=== PATIENT | female | born 1955 | race Caucasian/White ===

== ENCOUNTER 2016-07-12 14:48 | Inpatient (IN) | payer OTHER ==
[~2016-07-12] VITALS: Ht 157.5 cm; Wt 74.9 kg
[~2016-07-12 14:48] MED LIST: AMIT150T PO; BSP5 PO; GABA-112 PO; LSX20 PO; METO50TA16 PO; NITR0.4S UT; OXYC-106 PO; PANT40TA PO; SENN-65 PO; SIMV40TA2 PO
[2016-07-12] MEDS ORDERED: BUSP-8 PO (15:38)
[2016-07-12] MEDS ORDERED: CYM60 PO (15:38)
[2016-07-12] MEDS ORDERED: LPT/20 PO (15:38)
[2016-07-12] MEDS ORDERED: LSX20 PO (15:38)
[2016-07-12] MEDS ORDERED: OXYC-643 PO (15:38)
[2016-07-12] MEDS ORDERED: ZLF/50 PO (15:38)
[2016-07-12] MEDS ORDERED: ALBU18002 INH (15:41)
[2016-07-12] MEDS ORDERED: SYMIN160 INH (15:41)
[2016-07-12] MEDS ORDERED: OXYM1TAB PO (15:41)
[2016-07-12] MEDS ORDERED: TGR100 PO (15:41)
[2016-07-12] MEDS ORDERED: ESOM1CAP34 PO (15:44)
[2016-07-12] MEDS ORDERED: DOCU100C PO (15:45)
--- NOTE | 2016-07-12 16:08 | EMERGENCY ROOM VISIT NOTE ---
History Report prepared by Brittney: Arielle Hung Under the Supervision of: Dr. Jerome Horn M.D. First contact with patient: 15:27 Chief Complaint: ABNORMAL LABS Stated Complaint: ABNROMAL LABS, NEEDS BLOOD TRANSFUSIONS History of Present Illness The patient is a 60 year old female who presents to the Emergency Room with complaints of sudden abnormal lab work that was noticed prior to arrival. The patient saw Ashley DURON-[facility] - Pulmonary Medicine earlier today. She ordered blood work as well as a chest x-ray. Ashley Archuleta called her after she received the patient's blood work today and informed her that she should come into the ED for a blood transfusion because her blood counts were low when compared to previous blood work. The patient is unsure of what her blood counts were. The patient is experiencing lightheadedness with standing and shortness of breath. She has not noticed bleeding occurring from anywhere. The patient states that she had a MRI done recently that revealed that her hiatal hernia has gone up into her diaphragm. However, due to an adverse reaction to anaesthesia in the past, the patient states that doctors are hesitant to operate on her. 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 Her oncologist also expressed concern about scar tissue around her pancreas, which may have been a result of previous bleeding so the patient was worried that she may be bleeding there again even though she was unaware of any bleeding previously. 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 The patient is also experiencing blurry and "3D" vision as well as palpitations and shortness of breath. Additionally, the patient states that she has meningioma. The patient is not on any blood thinners. 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 Please see Additional Medical History Sheet. Past Medical & Surgical Medical Problems: (1) Diverticulosis (2) Nilsa Sampson virus infection (3) Fibromyalgia (4) Heart disease (5) Hemangioma of spleen (6) Hiatal hernia (7) HTN (hypertension) (8) Loss of teeth due to extraction (9) Meningioma Surgical Problems: (1) History of hysterectomy Family History Cancer Heart disease Hypertension Social History Smoking Status: Former Smoker Alcohol Use: none Marital Status: in relationship Housing Status: lives alone Occupation Status: unemployed Current/Historical Medications Scheduled Amitriptyline Hcl (Amitriptyline Hcl), 50 MG PO HS Atorvastatin (Atorvastatin Calcium), 20 MG PO HS Budesonide/Formoterol Fumarate (Symbicort 160/4.5 Inhaler ), 1 PUFFS INH BID Buspirone Hcl (Buspirone Hcl), 10 MG PO BID Carbamazepine (Carbamazepine), 100 MG PO BID Duloxetine HCl (Duloxetine HCl), 60 MG PO QPM Furosemide (Furosemide), 20 MG PO DAILY Metoprolol Tartrate (Lopressor) (Lopressor), 50 MG PO BID Nitroglycerin (Nitrostat), 0.4 MG UT PRN Sertraline HCl (Sertraline HCl), 50 MG PO QPM Scheduled PRN Albuterol Sulfate (Proair Respiclick), 2 PUFFS INH BID PRN for SOB/Wheezing Docusate Sodium (Stool Softener), 100 MG PO DAILY PRN for Constipation Esomeprazole Magnesium (Esomeprazole Magnesium), 40 MG PO DAILY PRN for PRN Oxycodone/Acetaminophen 5MG/325MG (Oxycodone/Acetaminophen 5MG/325MG), 1 TABLET PO Q12 PRN for Pain Oxymorphone Hcl (Oxymorphone Hydrochloride), 20 MG PO Q12 PRN for PRN Allergies Coded Allergies: Niacin (Verified Allergy, Intermediate, lips and tongue swell, 07/12/16) Physical Exam Vital Signs Date Time Temp Pulse Resp B/P Pulse Ox O2 Delivery O2 Flow Rate FiO2 07/12/16 18:20 73 16 182/70 100 Room Air 07/12/16 17:11 74 18 144/86 100 Room Air 07/12/16 17:08 74 18 144/86 100 71 164/91 74 174/81 07/12/16 16:18 75 07/12/16 16:12 75 16 155/79 99 Room Air 07/12/16 16:10 99 Room Air 07/12/16 14:56 36.7 91 17 163/83 100 Room Air Physical Exam GENERAL: Patient awake, alert, oriented x 3. Patient follows commands. Patient does not appear toxic. Patient is dehydrated but well-nourished. SKIN: No erythema, pallor, cyanosis or rash HEENT: Normal head, pupils equal, reactive to light and accommodation. Ears normal. Oral cavity and posterior pharynx appear dry. Neck: Without adenopathy , no neck vein distention. LUNGS: Clear to auscultation. No wheezes, no rales, no rhonchi. HEART: No murmurs. No gallops. No rubs ABDOMEN: No masses, no rebound, no hepatomegaly or splenomegaly. EXTREMITIES: No signs of trauma. No pedal or pretibial edema. No calf or thigh tenderness. NEUROLOGIC: Cranial nerves II-XII within normal limits. No gross motor sensory function deficits. Medical Decision & Procedures ER Provider Diagnostic Interpretation: X ray results are stated below per my interpretation and the radiologist's interpretation. CHEST 2 VIEWS ROUTINE IMPRESSION: Fixed hiatal hernia. Otherwise negative study Electronically signed by: Nicholas Partida M.D. 07/12/2016 4:37 PM Dictated Date/Time: 07/12/2016 4:37 PM Laboratory Results 07/12/16 16:05 Red Blood Count 3.42, Mean Corpuscular Volume 66.1, Mean Corpuscular Hemoglobin 19.6, Mean Corpuscular Hemoglobin Concent 29.6, Mean Platelet Volume 8.7, Neutrophils (%) (Auto) 53.2, Lymphocytes (%) (Auto) 36.2, Monocytes (%) (Auto) 6.7, Eosinophils (%) (Auto) 3.0, Basophils (%) (Auto) 0.7, Neutrophils # (Auto) 2.85, Lymphocytes # (Auto) 1.94, Monocytes # (Auto) 0.36, Eosinophils # (Auto) 0.16, Basophils # (Auto) 0.04 07/12/16 16:05 Test 07/12/16 16:05 07/12/16 17:00 07/12/16 18:43 07/12/16 18:45 White Blood Count 5.36 K/uL (4.8-10.8) Red Blood Count 3.42 M/uL (4.2-5.4) Hemoglobin 6.7 g/dL (12.0-16.0) Hematocrit 22.6 % (37-47) Mean Corpuscular Volume 66.1 fL (80-100) Mean Corpuscular Hemoglobin 19.6 pg (25-34) Mean Corpuscular Hemoglobin Concent 29.6 g/dl (32-36) Platelet Count 374 K/uL (130-400) Mean Platelet Volume 8.7 fL (7.4-10.4) Neutrophils (%) (Auto) 53.2 % Lymphocytes (%) (Auto) 36.2 % Monocytes (%) (Auto) 6.7 % Eosinophils (%) (Auto) 3.0 % Basophils (%) (Auto) 0.7 % Neutrophils # (Auto) 2.85 K/uL (1.4-6.5) Lymphocytes # (Auto) 1.94 K/uL (1.2-3.4) Monocytes # (Auto) 0.36 K/uL (0.11-0.59) Eosinophils # (Auto) 0.16 K/uL (0-0.5) Basophils # (Auto) 0.04 K/uL (0-0.2) RDW Standard Deviation 42.1 fL (36.4-46.3) RDW Coefficient of Variation 17.6 % (11.5-14.5) Immature Granulocyte % (Auto) 0.2 % Immature Granulocyte # (Auto) 0.01 K/uL (0.00-0.02) Poikilocytosis PRESENT Microcytosis PRESENT Prothrombin Time 11.8 SECONDS (9.0-12.0) Prothromb Time International Ratio 1.1 (0.9-1.1) Activated Partial Thromboplast Time 26.8 SECONDS (21.0-31.0) Partial Thromboplastin Ratio 1.0 Anion Gap 10.0 mmol/L (3-11) Est Creatinine Clear Calc Drug Dose 73.3 ml/min Estimated GFR () 98.0 Estimated GFR (Non- 84.5 BUN/Creatinine Ratio 12.1 (10-20) Calcium Level 9.1 mg/dl (8.5-10.1) Magnesium Level 2.3 mg/dl (1.8-2.4) Iron Level 12 mcg/dl (35-150) Total Iron Binding Capacity 434 mcg/dl (250-450) Total Bilirubin 0.4 mg/dl (0.2-1) Aspartate Amino Transf (AST/SGOT) 9 U/L (15-37) Alanine Aminotransferase (ALT/SGPT) 15 U/L (12-78) Alkaline Phosphatase 125 U/L (45-117) Troponin I < 0.015 ng/ml (0-0.045) Total Protein 7.2 gm/dl (6.4-8.2) Albumin 4.0 gm/dl (3.4-5.0) Globulin 3.2 gm/dl (2.5-4.0) Albumin/Globulin Ratio 1.3 (0.9-2) Lipase 149 U/L (73-393) Urine Color YELLOW Urine Appearance CLEAR (CLEAR) Urine pH 5.5 (4.5-7.5) Urine Specific [place] 1.022 (1.000-1.030) Urine Protein NEG (NEG) Urine Glucose (UA) NEG (NEG) Urine Ketones NEG (NEG) Urine Occult Blood NEG (NEG) Urine Nitrite NEG (NEG) Urine Bilirubin NEG (NEG) Urine Urobilinogen NEG (NEG) Urine Leukocyte Esterase NEG (NEG) Test 07/12/16 18:46 07/12/16 18:52 Laboratory results as stated above per my review. ECG Indication: SOB/dyspnea Rate (beats per minute): 76 Rhythm: normal sinus Findings: no acute ischemic change, no ectopy ED Course 1527: Past medical records reviewed. The patient was evaluated in room C11. A complete history and physical examination was performed. 1720: Upon reevaluation, the patient is resting comfortably. I discussed today' s findings with her. She verbalized agreement of the treatment plan. The patient will be evaluated for further management. 1739: Discussed the patient's case with Dr. Hyde - [facility] [place]. The patient will be evaluated for further management. Medical Decision Nurses notes reviewed. Medical history sheet reviewed. Differential diagnosis includes but is not limited to: anemia, metabolic disorder, pancreatitis. The patient feels weak and was told that she was evaluated. Multiple labs, EKG and imaging were obtained. Please see above. The patient's hemoglobin is less than 7. Guaiac stool was negative although it was very minimal stool. EKG does not reveal any acute findings. I ordered transfusion of 2 units of packed red cells. I discussed findings with the patient and with the hospitalist. Patient will require further evaluation in the hospital. Consults Time Called: 1708 Consulting Physician: Dr. Barrett VALENCIA Returned Call: [phone] Discussed the patient's case with Dr. Barrett VALENCIA. The patient will be evaluated for further management. Impression Primary Impression: Severe anemia Additional Impression: Hypokalemia Scribe Attestation The scribe's documentation has been prepared under my direction and personally reviewed by me in its entirety. I confirm that the note above accurately reflects all work, treatment, procedures, and medical decision making performed by me. Departure Information Dispostion Being Evaluated By Hospitalist Referrals Jaswinder Webster M.D. (PCP) Patient Instructions My [facility] Problem Qualifiers
[2016-07-12 16:39] LABS: INR 1.1 (0.9-1.1); PROTHROMBIN TIME (PATIENT) 11.8 SECONDS (9.0-12.0)
--- NOTE | 2016-07-12 16:39 | DIAGNOSTIC IMAGING REPORT ---
CHEST 2 VIEWS ROUTINE CLINICAL HISTORY: sob anemic dyspnea. Chest pain. COMPARISON STUDY: No previous studies for comparison. FINDINGS: The bones soft tissues and hemidiaphragms are normal. The cardiomediastinal silhouette is normal. The lungs are clear. The pulmonary vasculature is normal. There is a fixed hiatal hernia. IMPRESSION: Fixed hiatal hernia. Otherwise negative study Electronically signed by: Nicholas Partida M.D. 07/12/2016 4:37 PM Dictated Date/Time: 07/12/2016 4:37 PM
[2016-07-12 16:46] LABS: ALT/SGPT 15 U/L (12-78); AST/SGOT 9 U/L (15-37); BLOOD UREA NITROGEN 9 mg/dl (7-18); BUN/CREATININE RATIO 12.1 (10-20); CALCIUM 9.1 mg/dl (8.5-10.1); CARBON DIOXIDE 25 mmol/L (21-32); CHLORIDE 107 mmol/L (98-107); CREATININE 0.77 mg/dl (0.60-1.20); GLUCOSE 102 mg/dl (70-99); POTASSIUM 3.2 mmol/L (3.5-5.1); SODIUM 142 mmol/L (136-145)
[2016-07-12 16:51] LABS: ALB/GLOB RATIO 1.3 (0.9-2); ALKALINE PHOSPHATASE 125 U/L (45-117); HEMATOCRIT 22.6 % (37-47); MEAN CELL VOLUME 66.1 fL (80-100); MEAN CORPUSCULAR HEMOGLOBIN 19.6 pg (25-34); MEAN CORPUSCULAR HGB CONC 29.6 g/dl (32-36); MEAN PLATELET VOLUME 8.7 fL (7.4-10.4); PLATELET COUNT 374 K/uL (130-400); RED BLOOD COUNT 3.42 M/uL (4.2-5.4); WHITE BLOOD COUNT 5.36 K/uL (4.8-10.8)
[2016-07-12 16:55] LABS: BASO % 0.7 %; BASO ABS # 0.04 K/uL (0-0.2); COMPLETE YES; IG% 0.2 %; LYMPH % 36.2 %; LYMPH ABS # 1.94 K/uL (1.2-3.4); MICROCYTOSIS PRESENT; MONO % 6.7 %; NEUT % 53.2 %; POIKILOCYTOSIS PRESENT
[2016-07-12 17:26] LABS: URINE APPEARANCE CLEAR (CLEAR); URINE BILIRUBIN NEG (NEG); URINE COLOR YELLOW; URINE NITRITE NEG (NEG); URINE PH 5.5 (4.5-7.5); URINE SPECIFIC GRAVITY 1.022 (1.000-1.030); UROBILINOGEN NEG (NEG); ZZUR CULT IF INDIC CLEAN CATCH NO
[2016-07-12 17:30] LABS: MANUAL MICROSCOPIC REQUIRED? NO; REVIEW REQ? NO
[2016-07-12] MEDS ORDERED: ONDANSETRON INJ 2 MG/ML 2 ML VIAL IV PRN (18:45)
[2016-07-12] MEDS ORDERED: ACETAMINOPHEN 325 MG TAB PO PRN (18:45)
[2016-07-12] MEDS ORDERED: LEVALBUTEROL/IPRATROPIUM NEB INH PRN (18:45)
[2016-07-12] MEDS ORDERED: ZOLPIDEM TARTRATE 5 MG TAB PO PRN (18:45)
[2016-07-12] MEDS ORDERED: LEVALBUTEROL 1.25MG/0.5ML NEB INH PRN (19:00)
[2016-07-12] MEDS ORDERED: IPRATROPIUM BROMIDE NEB SOLN 0.02% 2.5 ML VIAL INH PRN (19:00)
[2016-07-12] MEDS ORDERED: OPTIRAY 320 IV PRN (19:00)
[2016-07-12 19:08] LABS: TOTAL IRON BINDING CAPACITY 434 mcg/dl (250-450)
--- NOTE | 2016-07-12 19:13 | DIAGNOSTIC IMAGING REPORT ---
ABDOMEN AND PELVIS CT WITH IV CONTRAST CT DOSE: 343.71 mGy.cm HISTORY: Pain ANEMIA TECHNIQUE: Multiaxial CT images of the abdomen and pelvis were performed following the use of intravenous contrast. COMPARISON STUDY: 01/13/2014 FINDINGS: Lung bases are clear. There is a fixed hiatal hernia. Liver spleen and pancreas are unremarkable. Gallbladder is negative for distention. Kidneys enhance uniformly. The adrenal glands are unremarkable. Bowel pattern is considered nonobstructive throughout. There is no significant abdominal pelvic or inguinal adenopathy. IMPRESSION: Fixed hiatal hernia. Otherwise negative study Electronically signed by: Nicholas Partida M.D. 07/12/2016 7:11 PM Dictated Date/Time: 07/12/2016 7:09 PM
[2016-07-12 19:30] VITALS: BP 172/76; PULSE 88; TEMP 36.9; Ht 157.5 cm; Wt 74.9 kg
[2016-07-12 20:14] VITALS: BP 189/81; PULSE 78; TEMP 36.8; O2SAT 100
--- NOTE | 2016-07-12 20:18 | History and Physical ---
History & Physical Date & Time of Service: Jul 12, 2016 at 19:58 Chief Complaint: Severe Anemia Primary Care Physician: Jaswinder Webster M.D. History of Present Illness Source: patient The patient is a 60-year-old female who is referred to the emergency department by Ashley Haskins PA-C pulmonary medicine, after having lab work performed which showed hemoglobin of 6.7. Patient's symptoms include orthostatic lightheadedness, palpitations, shortness of breath at rest and dyspnea on exertion. She has not noted blood in urine or stool. 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 She reports issues with her memory and clarity of thinking, this is been a problem for a number of years without a determined cause. 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 (3) Fibromyalgia Status: Chronic (4) Heart disease Status: Chronic (5) Hemangioma of spleen Status: Chronic (6) Hiatal hernia Status: Chronic (7) HTN (hypertension) Status: Chronic (8) Loss of teeth due to extraction Status: Chronic (9) Meningioma Status: Chronic Surgical Problems: (1) History of hysterectomy Status: Chronic Family History Cancer Heart disease Hypertension Social History Smoking Status: Former Smoker Smokeless Tobacco Use: No Alcohol Use: none Drug Use: none Marital Status: in relationship Housing status: lives with family Occupational Status: unemployed Multi-Drug Resistant Organisms History of MDRO: No Allergies Coded Allergies: Niacin (Verified Allergy, Intermediate, lips and tongue swell, 07/12/16) Home Medications Scheduled Amitriptyline Hcl (Amitriptyline Hcl), 50 MG PO HS Atorvastatin (Atorvastatin Calcium), 20 MG PO HS Budesonide/Formoterol Fumarate (Symbicort 160/4.5 Inhaler ), 1 PUFFS INH BID Buspirone Hcl (Buspirone Hcl), 10 MG PO BID Carbamazepine (Carbamazepine), 100 MG PO BID Duloxetine HCl (Duloxetine HCl), 60 MG PO QPM Furosemide (Furosemide), 20 MG PO DAILY Metoprolol Tartrate (Lopressor) (Lopressor), 50 MG PO BID Nitroglycerin (Nitrostat), 0.4 MG UT PRN Sertraline HCl (Sertraline HCl), 50 MG PO QPM Scheduled PRN Albuterol Sulfate (Proair Respiclick), 2 PUFFS INH BID PRN for SOB/Wheezing Docusate Sodium (Stool Softener), 100 MG PO DAILY PRN for Constipation Esomeprazole Magnesium (Esomeprazole Magnesium), 40 MG PO DAILY PRN for PRN Oxycodone/Acetaminophen 5MG/325MG (Oxycodone/Acetaminophen 5MG/325MG), 1 TABLET PO Q12 PRN for Pain Oxymorphone Hcl (Oxymorphone Hydrochloride), 20 MG PO Q12 PRN for PRN Review of Systems The patient denies chest pain, cough, lower extremity swelling, vision change, hearing change, sore throat, fevers, chills, sweats, weight change, fatigue, nausea, vomiting, abdominal pain, pelvic pain, blood in urine or stool, dysuria , urinary frequency or urgency, rash, abnormal bruising or bleeding, imbalance , focal or generalized weakness, numbness or tingling in arms or legs, arthralgias or myalgias, back or neck pain, night sweats, or allergy symptoms. The review of systems is otherwise negative other than for that already noted above, and at least 10 systems have been reviewed. Physical Exam Vital Signs Date Time Temp Pulse Resp B/P Pulse Ox O2 Delivery O2 Flow Rate FiO2 07/12/16 19:26 36.7 73 16 182/70 100 07/12/16 18:20 73 16 182/70 100 Room Air 07/12/16 17:11 74 18 144/86 100 Room Air 07/12/16 17:08 74 18 144/86 100 71 164/91 74 174/81 07/12/16 16:18 75 07/12/16 16:12 75 16 155/79 99 Room Air 07/12/16 16:10 99 Room Air 07/12/16 14:56 36.7 91 17 163/83 100 Room Air The patient is awake, well-developed and adequately nourished, alert and oriented 3, normocephalic and atraumatic, lying in bed and in no acute distress. HEENT--PERRL, EOMI, mucous membranes and oropharynx dry. Neck--supple, no JVD or bruits, thyroid normal, trachea midline, no adenopathy. Heart--normal S1 and S2, no extra beats, no murmurs, rubs or gallops. Lungs--clear bilaterally with good air movement, no respiratory distress, no accessory muscle use. Abdomen--normal bowel sounds and soft, nontender and nondistended, no hernias or masses, no organomegaly. Extremities--no cyanosis, clubbing or edema. There are good distal pulses b/l. Dermatologic--normal skin turgor, appears pale, warm and dry, no abnormal lymph nodes, no rash. Neurologic--cranial nerves II through XII grossly intact, motor and sensory examination normal. Rheumatologic--normal range of motion, nontender, muscles and joints. Psychiatric--normal affect. Diagnostics Laboratory Results Results Past 24 Hours Test 07/12/16 16:00 07/12/16 16:05 07/12/16 17:00 07/12/16 18:43 Range/Units White Blood Count 5.36 4.8-10.8 K/uL Red Blood Count 3.42 4.2-5.4 M/uL Hemoglobin 6.7 12.0-16.0 g/dL Hematocrit 22.6 37-47 % Mean Corpuscular Volume 66.1 80-100 fL Mean Corpuscular Hemoglobin 19.6 25-34 pg Mean Corpuscular Hemoglobin Concent 29.6 32-36 g/dl Platelet Count 374 130-400 K/uL Mean Platelet Volume 8.7 7.4-10.4 fL Neutrophils (%) (Auto) 53.2 % Lymphocytes (%) (Auto) 36.2 % Monocytes (%) (Auto) 6.7 % Eosinophils (%) (Auto) 3.0 % Basophils (%) (Auto) 0.7 % Neutrophils # (Auto) 2.85 1.4-6.5 K/uL Lymphocytes # (Auto) 1.94 1.2-3.4 K/uL Monocytes # (Auto) 0.36 0.11-0.59 K/uL Eosinophils # (Auto) 0.16 0-0.5 K/uL Basophils # (Auto) 0.04 0-0.2 K/uL RDW Standard Deviation 42.1 36.4-46.3 fL RDW Coefficient of Variation 17.6 11.5-14.5 % Immature Granulocyte % (Auto) 0.2 % Immature Granulocyte # (Auto) 0.01 0.00-0.02 K/uL Poikilocytosis PRESENT Microcytosis PRESENT Erythrocyte Sedimentation Rate 18 0-21 mm/hr Absolute Reticulocyte Count 0.06 0.02-0.10 10^6/uL Percent Reticulocyte Count 1.6 0.5-2.0 % Prothrombin Time 11.8 9.0-12.0 SECONDS Prothromb Time International Ratio 1.1 0.9-1.1 Activated Partial Thromboplast Time 26.8 21.0-31.0 SECONDS Partial Thromboplastin Ratio 1.0 Sodium Level 142 136-145 mmol/L Potassium Level 3.2 3.5-5.1 mmol/L Chloride Level 107 98-107 mmol/L Carbon Dioxide Level 25 21-32 mmol/L Anion Gap 10.0 3-11 mmol/L Blood Urea Nitrogen 9 7-18 mg/dl Creatinine 0.77 0.60-1.20 mg/dl Est Creatinine Clear Calc Drug Dose 73.3 ml/min Estimated GFR () 98.0 Estimated GFR (Non- 84.5 BUN/Creatinine Ratio 12.1 10-20 Random Glucose 102 70-99 mg/dl Calcium Level 9.1 8.5-10.1 mg/dl Magnesium Level 2.3 1.8-2.4 mg/dl Iron Level 12 35-150 mcg/dl Total Iron Binding Capacity 434 250-450 mcg/dl Total Bilirubin 0.4 0.2-1 mg/dl Aspartate Amino Transf (AST/SGOT) 9 15-37 U/L Alanine Aminotransferase (ALT/SGPT) 15 12-78 U/L Alkaline Phosphatase 125 45-117 U/L Troponin I < 0.015 0-0.045 ng/ml Total Protein 7.2 6.4-8.2 gm/dl Albumin 4.0 3.4-5.0 gm/dl Globulin 3.2 2.5-4.0 gm/dl Albumin/Globulin Ratio 1.3 0.9-2 Lipase 149 73-393 U/L Urine Color YELLOW Urine Appearance CLEAR CLEAR Urine pH 5.5 4.5-7.5 Urine Specific [place] 1.022 1.000-1.030 Urine Protein NEG NEG Urine Glucose (UA) NEG NEG Urine Ketones NEG NEG Urine Occult Blood NEG NEG Urine Nitrite NEG NEG Urine Bilirubin NEG NEG Urine Urobilinogen NEG NEG Urine Leukocyte Esterase NEG NEG Test 07/12/16 18:45 07/12/16 18:46 Range/Units Diagnostic Radiology Patient Name: AGNIESZKA MODI Unit Number: [id number] Dictated: 07/12/161636 Transcribed: 07/12/161636 MS Printed Date/Time: [~ rep prt dt]/[~ rep prt tm] [~ rep ct labl] - [~ rep ct ivnm] [facility] [place] [address] Dictated: 07/12/161636 Transcribed: 07/12/161636 MS Printed Date/Time: [~ rep prt dt]/[~ rep prt tm] [~ rep ct labl] - [~ rep ct ivnm] CHEST 2 VIEWS ROUTINE CLINICAL HISTORY: sob anemic dyspnea. Chest pain. COMPARISON STUDY: No previous studies for comparison. FINDINGS: The bones soft tissues and hemidiaphragms are normal. The cardiomediastinal silhouette is normal. The lungs are clear. The pulmonary vasculature is normal. There is a fixed hiatal hernia. IMPRESSION: Fixed hiatal hernia. Otherwise negative study Electronically signed by: Nicholas Partida M.D. 07/12/2016 4:37 PM Dictated Date/Time: 07/12/2016 4:37 PM The status of this report is Signed. Draft = Not yet reviewed or approved by Radiologist. Signed = Reviewed and approved by Radiologist. <AttendingPhy></AttendingPhy> <FamilyPhy>Tino Norris PA-C</FamilyPhy> < PrimaryPhy>Jaswinder Webster M.D.</PrimaryPhy> <UnitNumber>[id number]</UnitNumber > <VisitNumber>[id number]</VisitNumber> <PatientName>AGNIESZKA MODI</PatientName> <DateOfBirth>1955</DateOfBirth> <Location>[facility]</Location> <ServiceDate></ServiceDate> <MNE>ESINDI</MNE> <OrderingPhy>Jerome Horn M.D.</ OrderingPhy> <OrderingPhyMNE>f rep ord dr molina</OrderingPhyMNE> <DictatingPhyMNE> f rep dict dr molina</DictatingPhyMNE> <CCListMNE>f rep ct mne</CCListMNE> < AdmittingPhyMNE>f pt admit dr molina</AdmittingPhyMNE> <AttendingPhyMNE>f pt attend dr molina</AttendingPhyMNE> <ConsultingPhyMNE>f pt consult dr molina</ConsultingPhyMNE> <FamilyPhyMNE>f pt fam dr molina</FamilyPhyMNE> <OtherPhyMNE>f pt other dr molina</OtherPhyMNE> < PrimaryPhyMNE>f pt prim care dr molina</PrimaryPhyMNE> <ReferringPhyMNE>f pt referring dr molina</ReferringPhyMNE> Patient Name: AGNIESZKA MODI Unit Number: [id number] Dictated: 07/12/161908 Transcribed: 07/12/161908 MS Printed Date/Time: [~ rep prt dt]/[~ rep prt tm] [~ rep ct labl] - [~ rep ct ivnm] [facility] [place] [address] Dictated: 07/12/161908 Transcribed: 07/12/161908 MS Printed Date/Time: [~ rep prt dt]/[~ rep prt tm] [~ rep ct labl] - [~ rep ct ivnm] [~ rep ct add3]] ABDOMEN AND PELVIS CT WITH IV CONTRAST CT DOSE: 343.71 mGy.cm HISTORY: Pain ANEMIA TECHNIQUE: Multiaxial CT images of the abdomen and pelvis were performed following the use of intravenous contrast. COMPARISON STUDY: 01/13/2014 FINDINGS: Lung bases are clear. There is a fixed hiatal hernia. Liver spleen and pancreas are unremarkable. Gallbladder is negative for distention. Kidneys enhance uniformly. The adrenal glands are unremarkable. Bowel pattern is considered nonobstructive throughout. There is no significant abdominal pelvic or inguinal adenopathy. IMPRESSION: Fixed hiatal hernia. Otherwise negative study Electronically signed by: Nicholas Partida M.D. 07/12/2016 7:11 PM Dictated Date/Time: 07/12/2016 7:09 PM The status of this report is Signed. Draft = Not yet reviewed or approved by Radiologist. Signed = Reviewed and approved by Radiologist. <AttendingPhy></AttendingPhy> <FamilyPhy>Tino Norris PA-C</FamilyPhy> < PrimaryPhy>Jaswinder Webster M.D.</PrimaryPhy> <UnitNumber>[id number]</UnitNumber > <VisitNumber>[id number]</VisitNumber> <PatientName>AGNIESZKA MODI</PatientName> <DateOfBirth>1955</DateOfBirth> <Location>[facility]</Location> <ServiceDate></ServiceDate> <MNE>ESINDI</MNE> <OrderingPhy>Buck Hyde M.D.</ OrderingPhy> <OrderingPhyMNE>f rep ord dr molina</OrderingPhyMNE> <DictatingPhyMNE> f rep dict dr molina</DictatingPhyMNE> <CCListMNE>f rep ct mne</CCListMNE> < AdmittingPhyMNE>f pt admit dr molina</AdmittingPhyMNE> <AttendingPhyMNE>f pt attend dr molina</AttendingPhyMNE> <ConsultingPhyMNE>f pt consult dr molina</ConsultingPhyMNE> <FamilyPhyMNE>f pt fam dr molina</FamilyPhyMNE> <OtherPhyMNE>f pt other dr molina</OtherPhyMNE> < PrimaryPhyMNE>f pt prim care dr molina</PrimaryPhyMNE> <ReferringPhyMNE>f pt referring dr molina</ReferringPhyMNE> EKG EKG shows normal sinus rhythm at 76 bpm, no acute ST-T changes, no change compared to 01/13/2014. Impression Assessment and Plan Symptomatic Hypochromic, microcytic anemia--patient be admitted to telemetry unit. Will Hemoccult test stools. We will add iron, TIBC, low B12, folic acid , sedimentation rate, SOCRATES, hemoglobin electrophoresis, reticulocyte count to current labs. We'll transfuse 2 units packed RBCs tonight, and follow serial laboratories. Will Hemoccult test stools. We'll consult gastroenterology and hematology oncology. She'll be allowed to have full liquid diet tonight and then nothing by mouth except meds after midnight. We'll send a peripheral smear for review. Of note, the patient reports that years ago she was told that she had lymphoma, then when her laboratories were repeated she was told she had an Nilsa-Sampson virus infection. Place on pantoprazole 40 mg IV twice a day. CAD/hypertension--continue metoprolol tartrate 50 mg by mouth twice a day, nitroglycerin sublingual 0.4 mg when necessary chest pain. Hold furosemide 20 mg by mouth daily. Anxiety/depression/fibromyalgia--continue amitriptyline 50 mg by mouth at bedtime, buspirone 10 mg by mouth twice a day, duloxetine 60 mg by mouth every evening, sertraline 50 mg by mouth every evening and carbamazepine 100 mg by mouth twice a day. Asthma--continue Symbicort 160/4.5 one puff twice a day. We'll have Xopenex with Atrovent nebulizer to use every 2 hours when necessary. Hypercholesterolemia--continue atorvastatin 20 mg by mouth at bedtime. Level of Care Telemetry Advanced Directives Existing Advance Directive: No Existing Living Will: No Existing Power of Punch Card Operator: No Resuscitation Status FULL RESUSCITATION VTE Prophylaxis VTE Risk Assessment Done? Y/N: Yes Risk Level: Moderate Given or contraindicated: SCD's Social Service Consult None Apply
[2016-07-12] MEDS: SERTRALINE HCL 50 MG TAB PO SCH (20:27)
[2016-07-12] MEDS: CARBAMAZEPINE 100 MG CHEW TAB PO SCH (20:27)
[2016-07-12] MEDS: DULOXETINE HCL 60 MG CAP PO SCH (20:28)
[2016-07-12] MEDS: METOPROLOL TARTRATE 50 MG TAB PO SCH (20:29)
[2016-07-12 20:30] VITALS: BP 172/83; PULSE 72; TEMP 37; O2SAT 100
[2016-07-12] MEDS ORDERED: NURSING VERBAL MED ORDER ONE (21:00)
[2016-07-12] MEDS ORDERED: MoRPHine SULFATE 2 MG/ML CARP IV PRN (21:15)
[2016-07-12 21:30] VITALS: BP 150/87; PULSE 66; TEMP 36.5; O2SAT 100
[2016-07-12 22:30] VITALS: BP 157/82; PULSE 69; TEMP 36.5; O2SAT 99
[2016-07-12] MEDS: PANTOprazole INJ 40 MG in SYRINGE 0 ML IV SCH (23:15)
[2016-07-12] MEDS: NSS + 20MEQ KCL 1000ML 1,000 ML IV SCH (23:16)
[2016-07-12] MEDS: MoRPHine SULFATE 4 MG/ML 1 ML CARP\\VIAL IV PRN (23:16)
[2016-07-12 23:56] VITALS: BP 175/94; PULSE 63; TEMP 36.8; O2SAT 99
[2016-07-13] VITALS (11 sets, daily range): BP systolic 114–173; BP diastolic 70–93; PULSE 60–97; TEMP 36.3–37; O2SAT 96–99
[2016-07-13 05:21] LABS: BLOOD UREA NITROGEN 7 mg/dl (7-18); BUN/CREATININE RATIO 10.5 (10-20); CALCIUM 8.4 mg/dl (8.5-10.1); CARBON DIOXIDE 27 mmol/L (21-32); CHLORIDE 111 mmol/L (98-107); GLUCOSE 97 mg/dl (70-99); MAGNESIUM 2.2 mg/dl (1.8-2.4); POTASSIUM 4.1 mmol/L (3.5-5.1); SODIUM 143 mmol/L (136-145)
[2016-07-13 05:34] LABS: HEMATOCRIT 29.4 % (37-47); MEAN CELL VOLUME 72.8 fL (80-100); MEAN CORPUSCULAR HGB CONC 31.6 g/dl (32-36); MEAN PLATELET VOLUME 9.3 fL (7.4-10.4); PLATELET COUNT 288 K/uL (130-400); RED BLOOD COUNT 4.04 M/uL (4.2-5.4); WHITE BLOOD COUNT 5.13 K/uL (4.8-10.8)
[2016-07-13 05:41] LABS: ANISOCYTOSIS PRESENT; BASO ABS # 0.05 K/uL (0-0.2); COMPLETE YES; EOS % 4.3 %; IG% 0.2 %; LYMPH % 57.1 %; LYMPH ABS # 2.93 K/uL (1.2-3.4); MONO % 11.7 %; NEUT % 25.7 %
[2016-07-13 08:03] LABS: OVALOCYTES 1+
--- NOTE | 2016-07-13 08:12 | Hospitalist Progress Note ---
Hospitalist Progress Note Date of Service Jul 13, 2016. (Daija Barahona PA-C) Subjective Pt evaluation today including: conversation w/ patient, physical exam, chart review, lab review, review of studies, review of inpatient medication list The patient was seen and examined this morning. Patient reports feeling slightly improved today compared to yesterday. She is status post 2 units packed red blood cells last night. Her hemoglobin has appropriately trended up 2 g. Patient reports a significant history of anesthesia intolerance, and she is refusing to undergo any procedure where she needs anesthesia. She reports not waking up for several days and becoming delirious after her first administration of anesthesia. She has had a colonoscopy and an endoscopy before , and states the effects were not as bad. She denies any lightheadedness, dizziness, chest pain, flutter, palpitation or shortness of breath currently. Additional Comments: Constitutional: No fever, chills, sweats, + fatigue Eyes: No diplopia, no changes in vision ENT: No sore throat, tinnitus, or trouble swallowing, + all teeth extracted years ago Respiratory: No shortness of breath, +difficult to take deep breaths, No dyspnea at rest or on exertion, no cough or sputum Cardiovascular: No chest pain, palpitations, or flutter Abdomen: No pain, No constipation, No diarrhea, No nausea, No vomiting Musculoskeletal: No calf pain, No joint pain, No swelling Genitourinary : No dysuria or urinary frequency, No hematuria Neurologic: No numbness/tingling, history of imbalance and requires careful stepping with ambulation, no sensory or motor deficits Psychiatric: No depression or anxiety symptoms Endocrine: + fatigue, No weight changes Integumentary: No itch, No rash (Daija Barahona PA-C) Objective Vital Signs Date Time Temp Pulse Resp B/P Pulse Ox O2 Delivery O2 Flow Rate FiO2 07/13/16 04:00 Room Air 07/13/16 02:59 36.7 72 16 137/80 96 07/13/16 01:59 36.5 60 18 114/70 98 07/13/16 01:42 36.4 64 17 160/81 99 07/13/16 01:13 36.7 61 16 149/93 97 07/13/16 00:13 37.0 62 16 147/88 99 07/12/16 23:59 Room Air 07/12/16 23:56 36.8 63 17 175/94 99 07/12/16 22:30 36.5 69 16 157/82 99 07/12/16 21:30 36.5 66 16 150/87 100 07/12/16 20:30 37.0 72 16 172/83 100 07/12/16 20:14 36.8 78 16 189/81 100 07/12/16 19:30 36.9 88 16 172/76 Room Air 07/12/16 19:26 36.7 73 16 182/70 100 07/12/16 18:20 73 16 182/70 100 Room Air 07/12/16 17:11 74 18 144/86 100 Room Air 07/12/16 17:08 74 18 144/86 100 71 164/91 74 174/81 07/12/16 16:18 75 07/12/16 16:12 75 16 155/79 99 Room Air 07/12/16 16:10 99 Room Air 07/12/16 14:56 36.7 91 17 163/83 100 Room Air (Daija Barahona, PA-C) Physical Exam Notes: General: awake, alert, no apparent distress, +. Appears older than stated age Head: Normocephalic, atraumatic, edentulous ENT: PERRL, EOMI, no pharyngeal exudate, mucous membranes moist Chest: Clear to auscultation, on room air, no adventitious breath sounds Cardiac: Regular rate and rhythm, no murmur, no JVD, normal peripheral pulses, good capillary refill Abdominal: NABS x 4 quadrants, soft, nontender to palpation, no rebound, guarding or tenderness Extremities: Normal inspection, no peripheral edema or erythema, calfs nontender to palpation Psych: Normal mood and affect Neuro: AAO x 3, strength intact bilaterally and related 5/5, no motor deficits, speech is clear, no peripheral sensory deficits Integumentary: + pallor (Daija Barahona, PA-C) Laboratory Results Last 24 Hours Test 07/12/16 16:00 07/12/16 16:05 07/12/16 17:00 07/12/16 19:57 White Blood Count 5.36 K/uL Red Blood Count 3.42 M/uL Hemoglobin 6.7 g/dL Hematocrit 22.6 % Mean Corpuscular Volume 66.1 fL Mean Corpuscular Hemoglobin 19.6 pg Mean Corpuscular Hemoglobin Concent 29.6 g/dl Platelet Count 374 K/uL Mean Platelet Volume 8.7 fL Neutrophils (%) (Auto) 53.2 % Lymphocytes (%) (Auto) 36.2 % Monocytes (%) (Auto) 6.7 % Eosinophils (%) (Auto) 3.0 % Basophils (%) (Auto) 0.7 % Neutrophils # (Auto) 2.85 K/uL Lymphocytes # (Auto) 1.94 K/uL Monocytes # (Auto) 0.36 K/uL Eosinophils # (Auto) 0.16 K/uL Basophils # (Auto) 0.04 K/uL RDW Standard Deviation 42.1 fL RDW Coefficient of Variation 17.6 % Immature Granulocyte % (Auto) 0.2 % Immature Granulocyte # (Auto) 0.01 K/uL Poikilocytosis PRESENT Microcytosis PRESENT Erythrocyte Sedimentation Rate 18 mm/hr Absolute Reticulocyte Count 0.06 10^6/uL Percent Reticulocyte Count 1.6 % Prothrombin Time 11.8 SECONDS Prothromb Time International Ratio 1.1 Activated Partial Thromboplast Time 26.8 SECONDS Partial Thromboplastin Ratio 1.0 Sodium Level 142 mmol/L Potassium Level 3.2 mmol/L Chloride Level 107 mmol/L Carbon Dioxide Level 25 mmol/L Anion Gap 10.0 mmol/L Blood Urea Nitrogen 9 mg/dl Creatinine 0.77 mg/dl Est Creatinine Clear Calc Drug Dose 73.3 ml/min Estimated GFR () 98.0 Estimated GFR (Non- 84.5 BUN/Creatinine Ratio 12.1 Random Glucose 102 mg/dl Calcium Level 9.1 mg/dl Magnesium Level 2.3 mg/dl Iron Level 12 mcg/dl Total Iron Binding Capacity 434 mcg/dl Total Bilirubin 0.4 mg/dl Aspartate Amino Transf (AST/SGOT) 9 U/L Alanine Aminotransferase (ALT/SGPT) 15 U/L Alkaline Phosphatase 125 U/L Troponin I < 0.015 ng/ml Total Protein 7.2 gm/dl Albumin 4.0 gm/dl Globulin 3.2 gm/dl Albumin/Globulin Ratio 1.3 Lipase 149 U/L Urine Color YELLOW Urine Appearance CLEAR Urine pH 5.5 Urine Specific [place] 1.022 Urine Protein NEG Urine Glucose (UA) NEG Urine Ketones NEG Urine Occult Blood NEG Urine Nitrite NEG Urine Bilirubin NEG Urine Urobilinogen NEG Urine Leukocyte Esterase NEG Vitamin B12 Level 572 pg/mL Folate > 24.00 ng/mL Test 07/12/16 22:45 07/13/16 04:30 Stool Occult Blood NEGATIVE White Blood Count 5.13 K/uL Red Blood Count 4.04 M/uL Hemoglobin 9.3 g/dL Hematocrit 29.4 % Mean Corpuscular Volume 72.8 fL Mean Corpuscular Hemoglobin 23.0 pg Mean Corpuscular Hemoglobin Concent 31.6 g/dl Platelet Count 288 K/uL Mean Platelet Volume 9.3 fL Neutrophils (%) (Auto) 25.7 % Lymphocytes (%) (Auto) 57.1 % Monocytes (%) (Auto) 11.7 % Eosinophils (%) (Auto) 4.3 % Basophils (%) (Auto) 1.0 % Neutrophils # (Auto) 1.32 K/uL Lymphocytes # (Auto) 2.93 K/uL Monocytes # (Auto) 0.60 K/uL Eosinophils # (Auto) 0.22 K/uL Basophils # (Auto) 0.05 K/uL RDW Standard Deviation 57.2 fL RDW Coefficient of Variation 21.6 % Immature Granulocyte % (Auto) 0.2 % Immature Granulocyte # (Auto) 0.01 K/uL Anisocytosis PRESENT Ovalocytes 1+ Sodium Level 143 mmol/L Potassium Level 4.1 mmol/L Chloride Level 111 mmol/L Carbon Dioxide Level 27 mmol/L Anion Gap 5.0 mmol/L Blood Urea Nitrogen 7 mg/dl Creatinine 0.70 mg/dl Est Creatinine Clear Calc Drug Dose 80.0 ml/min Estimated GFR () 109.9 Estimated GFR (Non- 94.8 BUN/Creatinine Ratio 10.5 Random Glucose 97 mg/dl Calcium Level 8.4 mg/dl Magnesium Level 2.2 mg/dl Total Creatine Kinase 75 U/L Creatine Kinase MB < 0.5 ng/ml Creatine Kinase MB Ratio Troponin I < 0.015 ng/ml (Daija Barahona, RACHEAL) Assessment and Plan This is a 60 yo F with PMHx of CAD, HTN, asthma, hyperlipidemia presenting with symptomatic anemia and hgb=6.7. Symptomatic Hypochromic, microcytic anemia - Pt was transfused 2 U PRBCs overnight, hgb improved to 9 - Hemoccult test stools have been negative - Heme/onc consulted - appreciate recs- transferrin in process - Patient has been administered IV ferritin while here, she is likely to require this as an outpatient in the future. Will start iron supplementation once daily for now and if she tolerates can be increased to twice daily. - Cont pantoprazole 40 mg IV twice a day. CAD Hypertension - continue metoprolol tartrate 50 mg BID, nitroglycerin sublingual 0.4 mg prn chest pain. - Hold [employer] lasix 20 mg daily for now - no peripheral edema or decreased breath sounds. The patient takes this, an as-needed basis as an outpatient for lower extremity edema History of meningioma - Follows with her she neurology for this Anxiety/ depression/fibromyalgia -continue amitriptyline 50 mg QHS, buspirone 10 mg BID, duloxetine 60 mg QHS, sertraline 50 mg QPM and carbamazepine 100 mg BID. Asthma - Continue Symbicort 160/4.5 one puff BID. - Cont Xopenex with Atrovent nebulizer to use every 2 hours when necessary. - Patient had formal PFTs done about 1 year ago and she is due for repeat testing within the next 1-2 months Hypercholesterolemia -continue atorvastatin 20 mg QHS DVT ppx: teds, scds, CODE STATUS: FULL CODE Disposition: From home, likely discharge within 1-2 days (Daija Barahona, RACHEAL) Attending Attestation: Pt seen/examined, chart reviewed, care plan d/w DOMI Barahona. I agree w/ the gunter components of her documentation. No events overnight. Tele normal. Denies any recent GI blood loss/melena/etc. Denies recent weight loss, wheat product intolerance, etc. Requests home pain meds be administered. VSS no fever gen - nad neck - JVD, very mild heart - RRR lungs - scant b/l basilar rales abd - soft, NT ext - 1+ edema b/l A/P: 1. severe, symptomatic iron deficiency anemia - etiology unclear. outpatient EGD/colonoscopy planned. s/p IV Fe today oral Fe at discharge celiac panel pending 2. ?acute diastolic CHF 2nd to PRBCs & IVF - stop IVF lasix 20mg IV x 1 3. h/o CAD?? outpatient stress test is planned according to patient 4. chronic pain syndrome - resume outpatient meds Kennedy Alonso MD (Kennedy Alonso MD)
[2016-07-13] MEDS: NSS + 20MEQ KCL 1000ML 1,000 ML IV SCH (08:39)
[2016-07-13] MEDS: PANTOprazole INJ 40 MG in SYRINGE 0 ML IV SCH ×2 (08:41→21:07)
[2016-07-13] MEDS: CARBAMAZEPINE 100 MG CHEW TAB PO SCH ×2 (08:42→21:09)
[2016-07-13] MEDS: METOPROLOL TARTRATE 50 MG TAB PO SCH ×2 (08:43→21:07)
[2016-07-13] MEDS: MoRPHine SULFATE 4 MG/ML 1 ML CARP\\VIAL IV PRN (09:04)
[2016-07-13 10:12] LABS: HYPOCHROMIA PRESENT
--- NOTE | 2016-07-13 11:09 | Oncology Consultation ---
Oncology/Heme Consultation Date of Consultation: Jul 13, 2016. Attending Physician: Kennedy Alonso MD Reason for Consultation: Iron deficiency anemia History of Present Illness Ms. Douglass was admitted with generalized fatigue and was found to have a significant microcytic anemia. Her baseline CBC reflects a normal MCV in the past. She denies any overt bleeding. She states she had a colonoscopy 2 years ago along with what sounds like an upper endoscopy with a good report. She denies weight loss. She denies any abdominal pain. She denies shortness of breath. 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 (3) Fibromyalgia Status: Chronic (4) Heart disease Status: Chronic (5) Hemangioma of spleen Status: Chronic (6) Hiatal hernia Status: Chronic (7) HTN (hypertension) Status: Chronic (8) Hypokalemia Status: Acute (9) Loss of teeth due to extraction Status: Chronic (10) Meningioma Status: Chronic (11) Severe anemia Status: Acute Surgical Problems: (1) History of hysterectomy Status: Chronic Family History Cancer Heart disease Hypertension Social History Smoking Status: Former Smoker Smokeless Tobacco Use: No Alcohol Use: none Drug Use: none Marital Status: in relationship Housing Status: lives alone Occupation Status: unemployed Allergies Coded Allergies: Niacin (Verified Allergy, Intermediate, lips and tongue swell, 07/12/16) Home Medications Scheduled Amitriptyline Hcl (Amitriptyline Hcl), 50 MG PO HS Atorvastatin (Atorvastatin Calcium), 20 MG PO HS Budesonide/Formoterol Fumarate (Symbicort 160/4.5 Inhaler ), 1 PUFFS INH BID Buspirone Hcl (Buspirone Hcl), 10 MG PO BID Carbamazepine (Carbamazepine), 100 MG PO BID Duloxetine HCl (Duloxetine HCl), 60 MG PO QPM Furosemide (Furosemide), 20 MG PO DAILY Metoprolol Tartrate (Lopressor) (Lopressor), 50 MG PO BID Nitroglycerin (Nitrostat), 0.4 MG UT PRN Sertraline HCl (Sertraline HCl), 50 MG PO QPM Scheduled PRN Albuterol Sulfate (Proair Respiclick), 2 PUFFS INH BID PRN for SOB/Wheezing Docusate Sodium (Stool Softener), 100 MG PO DAILY PRN for Constipation Esomeprazole Magnesium (Esomeprazole Magnesium), 40 MG PO DAILY PRN for PRN Oxycodone/Acetaminophen 5MG/325MG (Oxycodone/Acetaminophen 5MG/325MG), 1 TABLET PO Q12 PRN for Pain Oxymorphone Hcl (Oxymorphone Hydrochloride), 20 MG PO Q12 PRN for PRN Current Inpatient Medications Current Inpatient Medications Medications (Trade) Dose Ordered Sig/Giselle Route Start Time Stop Time Status Last Admin Dose Admin Potassium Chloride/Sodium Chloride (Nss + 20meq KCl 1000ml) 1,000 ml @ 100 mls/hr Q10H IV 07/12/16 20:15 08/11/16 20:14 07/13/16 08:39 100 MLS/HR Acetaminophen (Tylenol Tab) 650 mg Q4H PRN PO 07/12/16 18:45 08/11/16 18:44 07/12/16 20:28 650 MG Zolpidem Tartrate (Ambien Tab) 5 mg HSZ PRN PO 07/12/16 18:45 08/11/16 18:44 Carbamazepine (Tegretol Chew Tab) 100 mg BID PO 07/12/16 21:00 08/11/16 20:59 07/13/16 08:42 100 MG Duloxetine HCl (Cymbalta Cap) 60 mg QPM PO 07/12/16 21:00 08/11/16 20:59 07/12/16 20:28 60 MG Metoprolol Tartrate (Lopressor Tab) 50 mg BID PO 07/12/16 21:00 08/11/16 20:59 07/13/16 08:43 50 MG Sertraline HCl (Zoloft Tab) 50 mg QPM PO 07/12/16 21:00 08/11/16 20:59 Buspirone HCl 10 mg 10 mg BID PO 07/12/16 21:00 08/11/16 20:59 07/13/16 08:43 10 MG Pantoprazole Sodium/Syringe (Protonix Inj/ Syringe) 10 ml @ 5 mls/min DAILY@09,21 IV 07/12/16 21:00 08/11/16 20:59 07/13/16 08:41 5 MLS/MIN Ondansetron HCl (Zofran Inj) 4 mg Q6H PRN IV 07/12/16 18:45 08/11/16 18:44 Ioversol (Optiray 320) 111 ml UD PRN IV 07/12/16 19:00 07/16/16 18:59 Ipratropium Bastian (Atrovent 0.02% 0.5MG/2.5ML Neb) 0.5 mg Q2H PRN INH 07/12/16 19:00 08/11/16 18:59 Levalbuterol (Xopenex 1.25MG/ 0.5ML Neb) 1.25 mg Q2H PRN INH 07/12/16 19:00 08/11/16 18:59 Morphine Sulfate (MoRPHine SULFATE INJ) 2 mg Q2H PRN IV 07/12/16 21:15 07/26/16 21:14 Morphine Sulfate (MoRPHine SULFATE INJ) 4 mg Q2H PRN IV 07/12/16 21:15 07/26/16 21:14 07/13/16 09:04 4 MG Review of Systems Constitutional: Negative for weight loss, night sweats, or fever Eyes: Negative for event change of vision ENT: Negative for epistaxis, nasal discharge, sore throat, or deafness Cardiovascular: Negative for chest pain, palpitations, dizziness, diaphoresis Respiratory: Negative for new shortness of breath,hemoptysis, or purulent cough Gastrointestinal: Negative for diarrhea, hematemesis, melena, nausea, vomiting , or dyspepsia Integumentary (skin): Negative for rash or jaundice discoloration Genitourinary: Negative for urinary frequency, hematuria, or dysuria Neurological: Negative for weakness, seizure activity, headache, or dizziness Lymphatic/Hematologic: Negative for petechiae, bleeding or new adenopathy Musculoskeletal: Negative for new joint or back pain Allergic/Immunologic: Negative for unusual rash or pruritis. Physical Exam Date Time Temp Pulse Resp B/P Pulse Ox O2 Delivery O2 Flow Rate FiO2 07/13/16 07:59 36.9 73 20 153/81 99 Room Air 07/13/16 04:00 Room Air 07/13/16 02:59 36.7 72 16 137/80 96 07/13/16 01:59 36.5 60 18 114/70 98 07/13/16 01:42 36.4 64 17 160/81 99 07/13/16 01:13 36.7 61 16 149/93 97 07/13/16 00:13 37.0 62 16 147/88 99 07/12/16 23:59 Room Air 07/12/16 23:56 36.8 63 17 175/94 99 07/12/16 22:30 36.5 69 16 157/82 99 07/12/16 21:30 36.5 66 16 150/87 100 07/12/16 20:30 37.0 72 16 172/83 100 07/12/16 20:14 36.8 78 16 189/81 100 07/12/16 19:30 36.9 88 16 172/76 Room Air 07/12/16 19:26 36.7 73 16 182/70 100 07/12/16 18:20 73 16 182/70 100 Room Air 07/12/16 17:11 74 18 144/86 100 Room Air 07/12/16 17:08 74 18 144/86 100 71 164/91 74 174/81 07/12/16 16:18 75 07/12/16 16:12 75 16 155/79 99 Room Air 07/12/16 16:10 99 Room Air 07/12/16 14:56 36.7 91 17 163/83 100 Room Air Constitutional: vitals are stable. Eyes: Eyes are SAMSON EOMI without conjuctival erythema or icterus. ENT: External examination was negative for masses. Neck: Negative for masses or palpable thyromegaly Respiratory: Lung sounds were generally clear bilaterally Cardiovascular: Heart was RRR without significant murmur, gallops aoe rubs Gastrointestinal: No palpable hepatic or splenomegaly. The abdomen was soft with normal bowel sounds. Lymphatic system: there was no palpable peripheral lymphadenopathy Musculoskeletal System: The musculoskeletal system seemed concordant with age. Skin: The skin was negative for jaundice. Neurologic exam: The exam was negative for any focal findings. Deep tendon reflexes were equal and symmetrical. Psychiatric exam: Was essentially negative with normal mood and effect. Breast exam: Done with patient permission was negative for palpable masses or corollary supraclavicular or axillary palpable adenopathy. Exam was witnessed by either a relative, red hat open stack administrator, or clinic staff. Extremities: Negative for edema or erythema Laboratory Results Last 24 Hours Test 07/12/16 16:00 07/12/16 16:05 07/12/16 17:00 07/12/16 19:57 White Blood Count 5.36 K/uL Red Blood Count 3.42 M/uL Hemoglobin 6.7 g/dL Hematocrit 22.6 % Mean Corpuscular Volume 66.1 fL Mean Corpuscular Hemoglobin 19.6 pg Mean Corpuscular Hemoglobin Concent 29.6 g/dl Platelet Count 374 K/uL Mean Platelet Volume 8.7 fL Neutrophils (%) (Auto) 53.2 % Lymphocytes (%) (Auto) 36.2 % Monocytes (%) (Auto) 6.7 % Eosinophils (%) (Auto) 3.0 % Basophils (%) (Auto) 0.7 % Neutrophils # (Auto) 2.85 K/uL Lymphocytes # (Auto) 1.94 K/uL Monocytes # (Auto) 0.36 K/uL Eosinophils # (Auto) 0.16 K/uL Basophils # (Auto) 0.04 K/uL RDW Standard Deviation 42.1 fL RDW Coefficient of Variation 17.6 % Immature Granulocyte % (Auto) 0.2 % Immature Granulocyte # (Auto) 0.01 K/uL Hypochromasia PRESENT Poikilocytosis PRESENT Microcytosis PRESENT Erythrocyte Sedimentation Rate 18 mm/hr Absolute Reticulocyte Count 0.06 10^6/uL Percent Reticulocyte Count 1.6 % Prothrombin Time 11.8 SECONDS Prothromb Time International Ratio 1.1 Activated Partial Thromboplast Time 26.8 SECONDS Partial Thromboplastin Ratio 1.0 Sodium Level 142 mmol/L Potassium Level 3.2 mmol/L Chloride Level 107 mmol/L Carbon Dioxide Level 25 mmol/L Anion Gap 10.0 mmol/L Blood Urea Nitrogen 9 mg/dl Creatinine 0.77 mg/dl Est Creatinine Clear Calc Drug Dose 73.3 ml/min Estimated GFR () 98.0 Estimated GFR (Non- 84.5 BUN/Creatinine Ratio 12.1 Random Glucose 102 mg/dl Calcium Level 9.1 mg/dl Magnesium Level 2.3 mg/dl Iron Level 12 mcg/dl Total Iron Binding Capacity 434 mcg/dl Total Bilirubin 0.4 mg/dl Aspartate Amino Transf (AST/SGOT) 9 U/L Alanine Aminotransferase (ALT/SGPT) 15 U/L Alkaline Phosphatase 125 U/L Troponin I < 0.015 ng/ml Total Protein 7.2 gm/dl Albumin 4.0 gm/dl Globulin 3.2 gm/dl Albumin/Globulin Ratio 1.3 Lipase 149 U/L Urine Color YELLOW Urine Appearance CLEAR Urine pH 5.5 Urine Specific [place] 1.022 Urine Protein NEG Urine Glucose (UA) NEG Urine Ketones NEG Urine Occult Blood NEG Urine Nitrite NEG Urine Bilirubin NEG Urine Urobilinogen NEG Urine Leukocyte Esterase NEG Vitamin B12 Level 572 pg/mL Folate > 24.00 ng/mL Test 07/12/16 22:45 07/13/16 04:30 07/13/16 10:41 07/13/16 10:58 Stool Occult Blood NEGATIVE White Blood Count 5.13 K/uL Red Blood Count 4.04 M/uL Hemoglobin 9.3 g/dL Hematocrit 29.4 % Mean Corpuscular Volume 72.8 fL Mean Corpuscular Hemoglobin 23.0 pg Mean Corpuscular Hemoglobin Concent 31.6 g/dl Platelet Count 288 K/uL Mean Platelet Volume 9.3 fL Neutrophils (%) (Auto) 25.7 % Lymphocytes (%) (Auto) 57.1 % Monocytes (%) (Auto) 11.7 % Eosinophils (%) (Auto) 4.3 % Basophils (%) (Auto) 1.0 % Neutrophils # (Auto) 1.32 K/uL Lymphocytes # (Auto) 2.93 K/uL Monocytes # (Auto) 0.60 K/uL Eosinophils # (Auto) 0.22 K/uL Basophils # (Auto) 0.05 K/uL RDW Standard Deviation 57.2 fL RDW Coefficient of Variation 21.6 % Immature Granulocyte % (Auto) 0.2 % Immature Granulocyte # (Auto) 0.01 K/uL Anisocytosis PRESENT Ovalocytes 1+ Sodium Level 143 mmol/L Potassium Level 4.1 mmol/L Chloride Level 111 mmol/L Carbon Dioxide Level 27 mmol/L Anion Gap 5.0 mmol/L Blood Urea Nitrogen 7 mg/dl Creatinine 0.70 mg/dl Est Creatinine Clear Calc Drug Dose 80.0 ml/min Estimated GFR () 109.9 Estimated GFR (Non- 94.8 BUN/Creatinine Ratio 10.5 Random Glucose 97 mg/dl Calcium Level 8.4 mg/dl Magnesium Level 2.2 mg/dl Ferritin 3.8 ng/ml Total Creatine Kinase 75 U/L Creatine Kinase MB < 0.5 ng/ml Creatine Kinase MB Ratio Troponin I < 0.015 ng/ml Assessment & Plan CBC does reflect a microcytosis. She is iron depleted. A serum ferritin should be checked. She was given 2 units of blood last evening. She should be on oral iron 325 mg of ferrous sulfate at least once a day and that perhaps twice a day. We will administer a dose of IV of parenteral iron while she is here. A GI consultation is in order. The patient states that she lives in [place] it is difficult for her to travel to [place] with any sort of frequency. She does attend the [facility] in [place] and I believe it would be warranted to have our [facility] hematology colleagues involved in that she may need parenteral iron down the road. I did review this with the hospitalist this morning.
[2016-07-13] MEDS ORDERED: SODIUM FERRIC GLUCONATE IV SCH ×3 (11:15→15:30)
[2016-07-13] MEDS ORDERED: SODIUM CHLORIDE 0.9% IV SCH ×3 (11:15→15:30)
--- NOTE | 2016-07-13 13:02 | Gastrointestinal Consultation ---
Gastrointestinal Consultation Date of Consultation: Jul 13, 2016 Attending Physician: Kennedy Watson Consulting Physician: Rubens Newton Reason for Consultation: Anemia History of Present Illness Patient is a 60 year old female w PMHx of diverticulosis, EBV infection, fibromyalgia, spleen hemangioma, hiatal hernia, HTN, meningioma, who is currently admitted for symptomatic anemia. She had been feeling fatigued, having SOB for a couple of weeks. She thought it may be related to her hiatal hernia, but called her Pulmonology office since they had initiated referred to GI surgery for possible repair for this issue. She was noted to be anemic upon eval by Pulmonary and also had desats w O2 to 85% per pt's report. Hgb was down in 6s, baseline in 2013 was 12. She was thus referred to ED for further evaluation. She denies any light headedness, dizziness, CP, but + SOB. Does have generalized abd bloating and occasional discomfort but no more than usual. Denies any nausea, vomiting, + reflux symptoms but well controlled since took Nexium. Bowels move regularly, w/o dark or tarry stools, rectal bleeding. Stool occult negative. She denies any hematuria, open bleeding wounds. She had 2U PRBC yesterday, Hgb up fro 6.7 to 9.3. She has no coagulopathy. Iron studies showed low iron of 12, she's been started on Ferrous Gluconate. Reports had hx of colonoscopy and EGD previously at [facility]. 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 Pt reports previous endoscopies showed hx of benign polyps, and hiatal hernia. Denies any family hx of colon ca. 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 (3) Fibromyalgia Status: Chronic (4) Heart disease Status: Chronic (5) Hemangioma of spleen Status: Chronic (6) Hiatal hernia Status: Chronic (7) HTN (hypertension) Status: Chronic (8) Hypokalemia Status: Acute (9) Loss of teeth due to extraction Status: Chronic (10) Meningioma Status: Chronic (11) Severe anemia Status: Acute Surgical Problems: (1) History of hysterectomy Status: Chronic Past Medical History: See HPI Past Surgical History: Hysterectomy Family History Cancer Heart disease Hypertension Social History Smoking Status: Former Smoker Alcohol Use: none Drug Use: none Marital Status: in relationship Housing Status: lives alone Occupation Status: unemployed Allergies Coded Allergies: Niacin (Verified Allergy, Intermediate, lips and tongue swell, 07/12/16) Current Medications Home Meds and Scripts Medications Dose Route/Sig Max Daily Dose Days Date Category Stool Softener (Docusate Sodium) 100 Mg Cap 100 Mg PO DAILY PRN 07/12/16 Reported Esomeprazole Magnesium 40 Mg Cap 40 Mg PO DAILY PRN 07/12/16 Reported Proair Respiclick (Albuterol Sulfate) 108 Mcg/Act Aer 2 Puffs INH BID PRN 07/12/16 Reported Symbicort 160/4.5 Inhaler (Budesonide/Formoterol Fumarate) Aero 1 Puffs INH BID 07/12/16 Reported Oxymorphone Hydrochloride (Oxymorphone Hcl) 20 Mg Tab 20 Mg PO Q12 PRN 07/12/16 Reported Carbamazepine 100 Mg Chew 100 Mg PO BID 07/12/16 Reported Duloxetine HCl 60 Mg Cap 60 Mg PO QPM 07/12/16 Reported Sertraline HCl 50 Mg Tab 50 Mg PO QPM 07/12/16 Reported Atorvastatin Calcium (Atorvastatin) 20 Mg Tab 20 Mg PO HS 07/12/16 Reported Furosemide 20 Mg Tab 20 Mg PO DAILY 07/12/16 Reported Buspirone Hcl 10 Mg Tab 10 Mg PO BID 07/12/16 Reported Oxycodone/Acetaminophen 5MG/325MG (Oxycodone/Acetaminophen) 1 Tab Tab 1 Tablet PO Q12 PRN 07/12/16 Reported Nitrostat (Nitroglycerin) 0.4 Mg Sub 0.4 Mg UT PRN 01/13/14 Reported Amitriptyline Hcl 150 Mg Tab 50 Mg PO HS 01/13/14 Reported Lopressor (Metoprolol Tartrate) 50 Mg Tab 50 Mg PO BID 11/20/10 Reported Review of Systems Constitutional: No chills, No fever Respiratory: + shortness of breath (improved), No cough Cardiac: No chest pain Abdomen: No GI bleeding, No nausea, No pain, No vomiting Skin: No itch, No rash Physical Exam Date Time Temp Pulse Resp B/P Pulse Ox O2 Delivery O2 Flow Rate FiO2 07/13/16 11:31 36.9 73 20 145/79 98 Room Air 07/13/16 07:59 36.9 73 20 153/81 99 Room Air 07/13/16 04:00 Room Air 07/13/16 02:59 36.7 72 16 137/80 96 07/13/16 01:59 36.5 60 18 114/70 98 07/13/16 01:42 36.4 64 17 160/81 99 07/13/16 01:13 36.7 61 16 149/93 97 07/13/16 00:13 37.0 62 16 147/88 99 07/12/16 23:59 Room Air 07/12/16 23:56 36.8 63 17 175/94 99 07/12/16 22:30 36.5 69 16 157/82 99 07/12/16 21:30 36.5 66 16 150/87 100 07/12/16 20:30 37.0 72 16 172/83 100 07/12/16 20:14 36.8 78 16 189/81 100 07/12/16 19:30 36.9 88 16 172/76 Room Air 07/12/16 19:26 36.7 73 16 182/70 100 07/12/16 18:20 73 16 182/70 100 Room Air 07/12/16 17:11 74 18 144/86 100 Room Air 07/12/16 17:08 74 18 144/86 100 71 164/91 74 174/81 07/12/16 16:18 75 07/12/16 16:12 75 16 155/79 99 Room Air 07/12/16 16:10 99 Room Air 07/12/16 14:56 36.7 91 17 163/83 100 Room Air General Appearance: WD/WN, no apparent distress Eyes: normal inspection, PERRL, EOMI Neck: supple, no JVD, trachea midline Respiratory/Chest: normal breath sounds, no respiratory distress, no accessory muscle use Cardiovascular: regular rate, rhythm, no gallop, no murmur Abdomen: normal bowel sounds, non tender, soft Extremities: normal inspection, no pedal edema, no calf tenderness Neurologic/Psych: alert, normal mood/affect, oriented x 3 Skin: normal color, no jaundice, no rash Laboratory Results Last 24 Hours Test 07/12/16 16:00 07/12/16 16:05 07/12/16 17:00 07/12/16 19:57 White Blood Count 5.36 K/uL Red Blood Count 3.42 M/uL Hemoglobin 6.7 g/dL Hematocrit 22.6 % Mean Corpuscular Volume 66.1 fL Mean Corpuscular Hemoglobin 19.6 pg Mean Corpuscular Hemoglobin Concent 29.6 g/dl Platelet Count 374 K/uL Mean Platelet Volume 8.7 fL Neutrophils (%) (Auto) 53.2 % Lymphocytes (%) (Auto) 36.2 % Monocytes (%) (Auto) 6.7 % Eosinophils (%) (Auto) 3.0 % Basophils (%) (Auto) 0.7 % Neutrophils # (Auto) 2.85 K/uL Lymphocytes # (Auto) 1.94 K/uL Monocytes # (Auto) 0.36 K/uL Eosinophils # (Auto) 0.16 K/uL Basophils # (Auto) 0.04 K/uL RDW Standard Deviation 42.1 fL RDW Coefficient of Variation 17.6 % Immature Granulocyte % (Auto) 0.2 % Immature Granulocyte # (Auto) 0.01 K/uL Hypochromasia PRESENT Poikilocytosis PRESENT Microcytosis PRESENT Erythrocyte Sedimentation Rate 18 mm/hr Absolute Reticulocyte Count 0.06 10^6/uL Percent Reticulocyte Count 1.6 % Prothrombin Time 11.8 SECONDS Prothromb Time International Ratio 1.1 Activated Partial Thromboplast Time 26.8 SECONDS Partial Thromboplastin Ratio 1.0 Sodium Level 142 mmol/L Potassium Level 3.2 mmol/L Chloride Level 107 mmol/L Carbon Dioxide Level 25 mmol/L Anion Gap 10.0 mmol/L Blood Urea Nitrogen 9 mg/dl Creatinine 0.77 mg/dl Est Creatinine Clear Calc Drug Dose 73.3 ml/min Estimated GFR () 98.0 Estimated GFR (Non- 84.5 BUN/Creatinine Ratio 12.1 Random Glucose 102 mg/dl Calcium Level 9.1 mg/dl Magnesium Level 2.3 mg/dl Iron Level 12 mcg/dl Total Iron Binding Capacity 434 mcg/dl Total Bilirubin 0.4 mg/dl Aspartate Amino Transf (AST/SGOT) 9 U/L Alanine Aminotransferase (ALT/SGPT) 15 U/L Alkaline Phosphatase 125 U/L Troponin I < 0.015 ng/ml Total Protein 7.2 gm/dl Albumin 4.0 gm/dl Globulin 3.2 gm/dl Albumin/Globulin Ratio 1.3 Lipase 149 U/L Urine Color YELLOW Urine Appearance CLEAR Urine pH 5.5 Urine Specific [place] 1.022 Urine Protein NEG Urine Glucose (UA) NEG Urine Ketones NEG Urine Occult Blood NEG Urine Nitrite NEG Urine Bilirubin NEG Urine Urobilinogen NEG Urine Leukocyte Esterase NEG Vitamin B12 Level 572 pg/mL Folate > 24.00 ng/mL Test 07/12/16 22:45 07/13/16 04:30 07/13/16 10:58 Stool Occult Blood NEGATIVE White Blood Count 5.13 K/uL Red Blood Count 4.04 M/uL Hemoglobin 9.3 g/dL Hematocrit 29.4 % Mean Corpuscular Volume 72.8 fL Mean Corpuscular Hemoglobin 23.0 pg Mean Corpuscular Hemoglobin Concent 31.6 g/dl Platelet Count 288 K/uL Mean Platelet Volume 9.3 fL Neutrophils (%) (Auto) 25.7 % Lymphocytes (%) (Auto) 57.1 % Monocytes (%) (Auto) 11.7 % Eosinophils (%) (Auto) 4.3 % Basophils (%) (Auto) 1.0 % Neutrophils # (Auto) 1.32 K/uL Lymphocytes # (Auto) 2.93 K/uL Monocytes # (Auto) 0.60 K/uL Eosinophils # (Auto) 0.22 K/uL Basophils # (Auto) 0.05 K/uL RDW Standard Deviation 57.2 fL RDW Coefficient of Variation 21.6 % Immature Granulocyte % (Auto) 0.2 % Immature Granulocyte # (Auto) 0.01 K/uL Anisocytosis PRESENT Ovalocytes 1+ Sodium Level 143 mmol/L Potassium Level 4.1 mmol/L Chloride Level 111 mmol/L Carbon Dioxide Level 27 mmol/L Anion Gap 5.0 mmol/L Blood Urea Nitrogen 7 mg/dl Creatinine 0.70 mg/dl Est Creatinine Clear Calc Drug Dose 80.0 ml/min Estimated GFR () 109.9 Estimated GFR (Non- 94.8 BUN/Creatinine Ratio 10.5 Random Glucose 97 mg/dl Calcium Level 8.4 mg/dl Magnesium Level 2.2 mg/dl Ferritin 3.8 ng/ml Total Creatine Kinase 75 U/L 70 U/L Creatine Kinase MB < 0.5 ng/ml < 0.5 ng/ml Creatine Kinase MB Ratio Troponin I < 0.015 ng/ml < 0.015 ng/ml Impression Patient is a 60 year old female w symptomatic iron deficiency anemia. No s/s of acute GI bleeding, FOBT was negative. She does have a fixed hiatal hernia evident on her CXR and CT abd/pelvis ? David's erosion causing chronic anemia. Plan - Monitor H/H and transfuse prn - Heme/Onc consulted - Complete anemia workup and iron supplementation - Will arrange for outpt EGD/Colonoscopy evaluation in 1 week's time. Pt prefers to be discharged as soon as she's stable. I have seen examined and agree with the plan as outlined above by AMILCAR Montero. -No bleeding, concern with hernia that may have chronic blood loss from David erosions. -Given FOBT negative outpt EGD/Colonoscopy
[2016-07-13] MEDS ORDERED: POTASSIUM CHLORIDE 10 MEQ TABCR PO STA (15:52)
[2016-07-13] MEDS ORDERED: FUROSEMIDE INJ 20 MG in SYRINGE 0 ML IV ONE (16:00)
[2016-07-13] MEDS: MAGNESIUM OXIDE 400 MG TAB PO SCH (16:35)
[2016-07-13] MEDS ORDERED: DiphenhydrAMINE HCL 50 MG/ML VIAL ONE (18:13)
[2016-07-13] MEDS ORDERED: NURSING VERBAL MED ORDER ONE (18:15)
[2016-07-13] MEDS ORDERED: ALBUTEROL 0.083% NEBU SOLN 3 ML VIAL INH ONE (18:18)
[2016-07-13] MEDS ORDERED: HYDROCODONE/ACETAMOPHEN 5/325MG TAB PO PRN (19:30)
[2016-07-13] MEDS: OXYCODONE HCL 20 MG TABCR (OXYCONTIN) PO SCH (19:55)
[2016-07-13] MEDS: METHYLPREDNISOLONE IV 40 MG in SYRINGE 0 ML IV SCH (19:56)
--- NOTE | 2016-07-13 20:34 | Progress Note ---
Progress Note Date of Service Jul 13, 2016. Progress Note 2024 After my visit with the patient I had ordered a dose of IV lasix as I thought the patient was mildly volume overloaded after having received 2 units PRBCs and IVF (had peripheral edema and mild rales at the bases). The nursing staff called me that as the IV lasix was being pushed, within a few seconds of such, she complained of her hands tingling and swelling. Her skin apparently became "mottled" per the staff and her HR/BP went up. I came back to reassess her and she complained of b/l hand swelling and wheezing. Denied laryngeal edema or facial swelling. Denied any rash or hives. She reported she had taken lasix since her teenage years. On exam - skin - no hives/rash but mild edema of both hands face - NO angioedema neck - NO angioedema or stridor heart - tachy, s1, s2 lungs - mild end-exp wheezes b/l The sequence of events was confirmed with the staff -- The iron infusion ran out. About 15 minutes after it was done the nurse flushed her IV with saline. The lasix was given IV. A few seconds after the IV lasix was given she complained of her hands swelling. Spoke with pharmacy and we were both in agreement that this was a reaction to the IV iron and less likely the lasix. Ordered albuterol, benadryl, and IV steroids for her symptoms. Checked on her about an hour after the benadryl and albuterol; hand swelling improved, wheezes resolved, no additional or new complaints. Dx - likely drug reaction to the IV iron. IV iron added to allergy list. Keep overnight. Noted - Hb of 10.3 tonight. Time between 3 separate visits -- about 60 minutes. Kennedy Alonso MD
[2016-07-13] MEDS: DULOXETINE HCL 60 MG CAP PO SCH (21:07)
[2016-07-13] MEDS: SERTRALINE HCL 50 MG TAB PO SCH ×2 (21:10→21:11)
[2016-07-14] MEDS: ALBUTEROL 0.083% NEBU SOLN 3 ML VIAL INH SCH ×4 (01:29→14:00)
[2016-07-14] MEDS: METHYLPREDNISOLONE IV 40 MG in SYRINGE 0 ML IV SCH ×2 (03:05→12:02)
[2016-07-14 03:09] VITALS: BP 126/66; PULSE 71; TEMP 36.6; O2SAT 95
[2016-07-14 06:00] LABS: BASO % 0.2 %; BASO ABS # 0.01 K/uL (0-0.2); HEMATOCRIT 33.2 % (37-47); IG% 0.2 %; LYMPH ABS # 0.94 K/uL (1.2-3.4); MEAN CELL VOLUME 72.3 fL (80-100); MEAN CORPUSCULAR HGB CONC 30.4 g/dl (32-36); MEAN PLATELET VOLUME 9.3 fL (7.4-10.4); MONO % 1.1 %; NEUT % 83.5 %; PLATELET COUNT 325 K/uL (130-400); RED BLOOD COUNT 4.59 M/uL (4.2-5.4); WHITE BLOOD COUNT 6.26 K/uL (4.8-10.8)
[2016-07-14 06:31] LABS: ANISOCYTOSIS PRESENT; COMPLETE YES
[2016-07-14 07:02] VITALS: PULSE 70; O2SAT 97
[2016-07-14 07:02] LABS: BUN/CREATININE RATIO 8.8 (10-20); CALCIUM 8.5 mg/dl (8.5-10.1); CREATININE 0.81 mg/dl (0.60-1.20); MAGNESIUM 2.3 mg/dl (1.8-2.4); POTASSIUM 4.2 mmol/L (3.5-5.1)
[2016-07-14 07:43] VITALS: BP 145/75; PULSE 69; TEMP 36.5; O2SAT 98
[2016-07-14] MEDS: OXYCODONE HCL 20 MG TABCR (OXYCONTIN) PO SCH (07:47)
[2016-07-14] MEDS: PANTOprazole INJ 40 MG in SYRINGE 0 ML IV SCH (07:47)
[2016-07-14] MEDS: MAGNESIUM OXIDE 400 MG TAB PO SCH (07:48)
[2016-07-14] MEDS: CARBAMAZEPINE 100 MG CHEW TAB PO SCH (07:48)
[2016-07-14] MEDS: METOPROLOL TARTRATE 50 MG TAB PO SCH (07:48)
--- NOTE | 2016-07-14 08:11 | Hospitalist Progress Note ---
Hospitalist Progress Note Date of Service Jul 14, 2016. Subjective Pt evaluation today including: conversation w/ patient, physical exam, chart review, lab review, review of studies, review of inpatient medication list Objective Vital Signs Date Time Temp Pulse Resp B/P Pulse Ox O2 Delivery O2 Flow Rate FiO2 07/14/16 07:43 36.5 69 18 145/75 98 Room Air 07/14/16 07:02 70 16 97 Room Air 07/14/16 04:35 Room Air 07/14/16 03:09 36.6 71 19 126/66 95 Room Air 07/14/16 00:09 Room Air 07/13/16 23:26 36.7 80 23 137/77 97 Room Air 07/13/16 19:57 36.3 93 20 149/91 99 Room Air 07/13/16 19:31 97 16 99 Room Air 07/13/16 16:00 Room Air 07/13/16 15:56 36.5 74 20 173/78 97 Room Air 07/13/16 12:00 Room Air 07/13/16 11:31 36.9 73 20 145/79 98 Room Air Laboratory Results Last 24 Hours Test 07/13/16 10:58 07/13/16 16:28 07/14/16 05:31 Total Creatine Kinase 70 U/L Creatine Kinase MB < 0.5 ng/ml Creatine Kinase MB Ratio Troponin I < 0.015 ng/ml Hemoglobin 10.3 g/dL 10.1 g/dL Hepatitis C Antibody Screen NEG White Blood Count 6.26 K/uL Red Blood Count 4.59 M/uL Hematocrit 33.2 % Mean Corpuscular Volume 72.3 fL Mean Corpuscular Hemoglobin 22.0 pg Mean Corpuscular Hemoglobin Concent 30.4 g/dl Platelet Count 325 K/uL Mean Platelet Volume 9.3 fL Neutrophils (%) (Auto) 83.5 % Lymphocytes (%) (Auto) 15.0 % Monocytes (%) (Auto) 1.1 % Eosinophils (%) (Auto) 0.0 % Basophils (%) (Auto) 0.2 % Neutrophils # (Auto) 5.23 K/uL Lymphocytes # (Auto) 0.94 K/uL Monocytes # (Auto) 0.07 K/uL Eosinophils # (Auto) 0.00 K/uL Basophils # (Auto) 0.01 K/uL RDW Standard Deviation 55.3 fL RDW Coefficient of Variation 20.9 % Immature Granulocyte % (Auto) 0.2 % Immature Granulocyte # (Auto) 0.01 K/uL Anisocytosis PRESENT Sodium Level 141 mmol/L Potassium Level 4.2 mmol/L Chloride Level 109 mmol/L Carbon Dioxide Level 23 mmol/L Anion Gap 9.0 mmol/L Blood Urea Nitrogen 7 mg/dl Creatinine 0.81 mg/dl Est Creatinine Clear Calc Drug Dose 70.9 ml/min Estimated GFR () 92.1 Estimated GFR (Non- 79.5 BUN/Creatinine Ratio 8.8 Random Glucose 164 mg/dl Calcium Level 8.5 mg/dl Magnesium Level 2.3 mg/dl Assessment and Plan This is a 60 yo F with PMHx of CAD, HTN, asthma, hyperlipidemia presenting with symptomatic anemia and hgb=6.7. Symptomatic Hypochromic, microcytic anemia - Pt was transfused 2 U PRBCs overnight, hgb improved to 9 - Hemoccult test stools have been negative - Heme/onc consulted - appreciate recs- transferrin in process - Patient has been administered IV ferritin while here, she is likely to require this as an outpatient in the future. Will start iron supplementation once daily for now and if she tolerates can be increased to twice daily. - Cont pantoprazole 40 mg IV twice a day. CAD Hypertension - continue metoprolol tartrate 50 mg BID, nitroglycerin sublingual 0.4 mg prn chest pain. - Hold [employer] lasix 20 mg daily for now - no peripheral edema or decreased breath sounds. The patient takes this, an as-needed basis as an outpatient for lower extremity edema History of meningioma - Follows with her she neurology for this Anxiety/ depression/fibromyalgia -continue amitriptyline 50 mg QHS, buspirone 10 mg BID, duloxetine 60 mg QHS, sertraline 50 mg QPM and carbamazepine 100 mg BID. Asthma - Continue Symbicort 160/4.5 one puff BID. - Cont Xopenex with Atrovent nebulizer to use every 2 hours when necessary. - Patient had formal PFTs done about 1 year ago and she is due for repeat testing within the next 1-2 months Hypercholesterolemia -continue atorvastatin 20 mg QHS DVT ppx: teds, scds, CODE STATUS: FULL CODE Disposition: From home, likely discharge within 1-2 days
--- NOTE | 2016-07-14 10:39 | Hematology/Oncology Prog Note ---
Hematology/Onc Progress Note Date of Service Jul 14, 2016. Diagnoses Iron deficiency anemia Medications Medications Administered Medications (Trade) Dose Ordered Sig/Giselle Route Start Time Stop Time Status Last Admin Dose Admin Potassium Chloride/Sodium Chloride (Nss + 20meq KCl 1000ml) 1,000 ml @ 100 mls/hr Q10H IV 07/12/16 20:15 07/13/16 15:53 DC 07/13/16 08:39 100 MLS/HR Acetaminophen (Tylenol Tab) 650 mg Q4H PRN PO 07/12/16 18:45 08/11/16 18:44 07/12/16 20:28 650 MG Carbamazepine (Tegretol Chew Tab) 100 mg BID PO 07/12/16 21:00 08/11/16 20:59 07/14/16 07:48 100 MG Duloxetine HCl (Cymbalta Cap) 60 mg QPM PO 07/12/16 21:00 08/11/16 20:59 07/13/16 21:07 60 MG Metoprolol Tartrate (Lopressor Tab) 50 mg BID PO 07/12/16 21:00 08/11/16 20:59 07/14/16 07:48 50 MG Buspirone HCl 10 mg 10 mg BID PO 07/12/16 21:00 08/11/16 20:59 07/14/16 07:47 10 MG Pantoprazole Sodium/Syringe (Protonix Inj/ Syringe) 10 ml @ 5 mls/min DAILY@09,21 IV 07/12/16 21:00 08/11/16 20:59 07/14/16 07:47 5 MLS/MIN Morphine Sulfate 4 mg 4 mg Q2H PRN IV 07/12/16 21:15 07/13/16 15:53 DC 07/13/16 09:04 4 MG Ferric Sodium Gluconate 100 mg/ Sodium Chloride 108 ml @ 108 mls/hr TODAY@1530 IV 07/13/16 15:30 07/13/16 16:29 DC 07/13/16 15:12 108 MLS/HR Ferric Sodium Gluconate 25 mg/ Sodium Chloride 52 ml @ 52 mls/hr TODAY@1200 IV 07/13/16 12:00 07/13/16 12:59 DC 07/13/16 12:27 52 MLS/HR Furosemide/Syringe (Lasix Inj/ Syringe) 2 ml @ 4 mls/min TODAY@1600 ONCE IV 07/13/16 16:00 07/13/16 16:01 DC 07/13/16 16:35 4 MLS/MIN Potassium Chloride (Klor-Con M10) 20 meq NOW STAT PO 07/13/16 15:52 07/13/16 15:55 DC 07/13/16 16:35 20 MEQ Magnesium Oxide (Mag-Ox Tab) 400 mg DAILY PO 07/13/16 16:00 08/12/16 15:59 07/14/16 07:48 400 MG Diphenhydramine HCl (Benadryl Inj) 50 mg STK-MED ONCE .ROUTE 07/13/16 18:13 07/13/16 18:14 DC 07/13/16 18:13 25 MG Albuterol Sulfate (Ventolin 0.083% 2.5MG/3ML Neb) 2.5 mg NOW ONCE INH 07/13/16 18:18 07/13/16 18:35 DC 07/13/16 18:18 2.5 MG Albuterol Sulfate 2.5 mg 2.5 mg Q6R INH 07/14/16 00:00 08/13/16 00:00 07/14/16 07:02 2.5 MG Methylprednisolone Sodium Succinate/ Syringe (Solu-Medrol IV/ Syringe) 0.64 ml @ 1.5 mls/min Q8H IV 07/13/16 19:00 08/12/16 18:29 07/14/16 03:05 1.5 MLS/MIN Diphenhydramine HCl (Benadryl Cap) 25 mg Q6H PO 07/14/16 00:00 08/13/16 00:00 07/14/16 06:15 25 MG Oxycodone HCl (Oxycontin Tab) 20 mg Q12H PO 07/13/16 20:00 07/27/16 19:59 07/14/16 07:47 20 MG Subjective She received a dose of parenteral iron yesterday and apparently afterwards or right afterwards had a potential reaction to it. Dr. Alonso reviewed the of that with me. She is now stable.. Hemoglobin today is 10.2 Review of Systems: Constitutional: Negative for weight loss, night sweats, or fever Eyes: Negative for event change of vision ENT: Negative for epistaxis, nasal discharge, sore throat, or deafness Cardiovascular: Negative for chest pain, palpitations, dizziness, diaphoresis Respiratory: She states that she still feels a little "wheezy" Gastrointestinal: Negative for diarrhea, hematemesis, melena, nausea, vomiting , or dyspepsia Integumentary (skin): Negative for rash or jaundice discoloration Genitourinary: Negative for urinary frequency, hematuria, or dysuria Neurological: Negative for weakness, seizure activity, headache, or dizziness Lymphatic/Hematologic: Negative for petechiae, bleeding or new adenopathy Musculoskeletal: Negative for new joint or back pain Allergic/Immunologic: Negative for unusual rash or pruritis. Vital Signs Vital Signs Past 12 Hours Date Time Temp Pulse Resp B/P Pulse Ox O2 Delivery O2 Flow Rate FiO2 07/14/16 08:00 Room Air 07/14/16 07:43 36.5 69 18 145/75 98 Room Air 07/14/16 07:02 70 16 97 Room Air 07/14/16 04:35 Room Air 07/14/16 03:09 36.6 71 19 126/66 95 Room Air 07/14/16 00:09 Room Air 07/13/16 23:26 36.7 80 23 137/77 97 Room Air Physical Exam Constitutional: vitals are stable. Eyes: Eyes are SAMSON EOMI without conjuctival erythema or icterus. ENT: External examination was negative for masses. Neck: Negative for masses or palpable thyromegaly Respiratory: Lung sounds were generally clear bilaterally. Did not hear any definite bronchospasm Cardiovascular: Heart was RRR without significant murmur, gallops aoe rubs Gastrointestinal: No palpable hepatic or splenomegaly. The abdomen was soft with normal bowel sounds. Lymphatic system: there was no palpable peripheral lymphadenopathy Musculoskeletal System: The musculoskeletal system seemed concordant with age. Skin: The skin was negative for jaundice. Neurologic exam: The exam was negative for any focal findings. Deep tendon reflexes were equal and symmetrical. Psychiatric exam: Was essentially negative with normal mood and effect. Breast exam: Not done Extremities: Negative for edema Laboratory Last 24 Hours Test 07/13/16 10:58 07/13/16 16:28 07/14/16 05:31 Total Creatine Kinase 70 U/L Creatine Kinase MB < 0.5 ng/ml Creatine Kinase MB Ratio Troponin I < 0.015 ng/ml Hemoglobin 10.3 g/dL 10.1 g/dL Hepatitis C Antibody Screen NEG White Blood Count 6.26 K/uL Red Blood Count 4.59 M/uL Hematocrit 33.2 % Mean Corpuscular Volume 72.3 fL Mean Corpuscular Hemoglobin 22.0 pg Mean Corpuscular Hemoglobin Concent 30.4 g/dl Platelet Count 325 K/uL Mean Platelet Volume 9.3 fL Neutrophils (%) (Auto) 83.5 % Lymphocytes (%) (Auto) 15.0 % Monocytes (%) (Auto) 1.1 % Eosinophils (%) (Auto) 0.0 % Basophils (%) (Auto) 0.2 % Neutrophils # (Auto) 5.23 K/uL Lymphocytes # (Auto) 0.94 K/uL Monocytes # (Auto) 0.07 K/uL Eosinophils # (Auto) 0.00 K/uL Basophils # (Auto) 0.01 K/uL RDW Standard Deviation 55.3 fL RDW Coefficient of Variation 20.9 % Immature Granulocyte % (Auto) 0.2 % Immature Granulocyte # (Auto) 0.01 K/uL Anisocytosis PRESENT Sodium Level 141 mmol/L Potassium Level 4.2 mmol/L Chloride Level 109 mmol/L Carbon Dioxide Level 23 mmol/L Anion Gap 9.0 mmol/L Blood Urea Nitrogen 7 mg/dl Creatinine 0.81 mg/dl Est Creatinine Clear Calc Drug Dose 70.9 ml/min Estimated GFR () 92.1 Estimated GFR (Non- 79.5 BUN/Creatinine Ratio 8.8 Random Glucose 164 mg/dl Calcium Level 8.5 mg/dl Magnesium Level 2.3 mg/dl Assessment & Plan Iron deficiency anemia. Be sure that she is on ferrous sulfate 325 mg at least once a day and preferably twice a day if tolerated. She may need further parenteral iron. I suspect discharge is planned shortly. I understand that a connection will be made to our colleagues at the [facility] for follow- up. We will sign off for now..
[2016-07-14] MEDS ORDERED: FERR1TAB23 PO (10:43)
--- NOTE | 2016-07-14 10:51 | Discharge Instructions ---
Discharge Instructions Date of Service Jul 14, 2016. Admission Reason for Admission: Severe Anemia Discharge Discharge Diagnosis / Problem: Severe anemia Discharge Goals Goal(s): Decrease discomfort, Improve function, Increase independence, Improve disease control Activity Recommendations Activity Limitations: resume your previous activity . Instructions / Follow-Up Instructions / Follow-Up You were admitted to [facility] with severe anemia and diagnosed with severe anemia secondary to low iron. During your stay here you were treated with intravenous iron: you developed an adverse reaction of swelling in the hands and feet, along with mottling of the skin after administration. - You were treated with intravenous steriods and benadryl. There was no swelling of the throat or airway compromise. This is likely due to the additives in intravenous iron, and not iron itself. - You received a blood transfusion which improved your blood counts. - You have been started on oral iron once daily. Please try to increase this to twice daily as tolerated. You will need to stay on the iron for several months. Taking the iron with a glass of orange juice will help you absorb the iron better. The iron can make your stools look dark. - Drink plenty of water to remain well hydrated, as iron supplementation can cause constipation. If you notice constipation or decrease in bowel frequency, discuss this with your PCP. -Wheezing of the lungs - take prednisone for 4 days starting TOMORROW on Sunday07/15/16. Continue your symbicort inhaler twice daily as prescribed by your family doctor. Take your albuterol inhaler 2 puffs every 4-6 hours as needed for cough/congestion/wheezing. Follow up with your Primary Care Provider within 1 week. Follow up with [facility] as scheduled later this month for the upper endoscopy/colonoscopy. Follow up with [facility] hematology (blood specialist) as scheduled. Current Hospital Diet Patient's current hospital diet: Regular Diet Discharge Diet Recommended Diet: Regular Diet Pending Studies Studies pending at discharge: no Medical Emergencies . Who to Call and When: Medical Emergencies: If at any time you feel your situation is an emergency, please call 911 immediately. . Non-Emergent Contact Non-Emergency issues call your: Primary Care Provider Call Non-Emergent contact if: you have a fever, temperature is above 100.5, your pain is not controlled, your pain is worsening, your pain is unusual for you, your pain is concerning you, you have any medication questions . Past History Medical & Surgical History: (1) Severe anemia (2) HTN (hypertension) (3) Fibromyalgia (4) Hiatal hernia . "Provider Documentation" section prepared by Ana Barahona. VTE Core Measure Inpt VTE Proph given/why not?: Amy Nielsen, SCD's [place] Drug Monitoring Program Search Results: patient reviewed within database
[2016-07-14 11:30] VITALS: BP 164/83; PULSE 81; TEMP 36.7; O2SAT 96
--- NOTE | 2016-07-14 12:36 | Discharge Summary ---
Discharge Summary Date of Service Jul 14, 2016. (Daija Barahona PA-C) Discharge Summary Admission Date: Jul 12, 2016 at 18:37 Discharge Date: Jul 14, 2016 Discharge Disposition: Home Principal Diagnosis: Severe anemia Problems/Secondary Diagnoses: (1) Diverticulosis Status: Chronic (2) Nilsa Sampson virus infection Status: Chronic (3) Fibromyalgia Status: Chronic (4) Heart disease Status: Chronic (5) Hemangioma of spleen Status: Chronic (6) Hiatal hernia Status: Chronic (7) History of hysterectomy Status: Chronic (8) HTN (hypertension) Status: Chronic (9) Loss of teeth due to extraction Status: Chronic (10) Meningioma Status: Chronic Procedures: Chest x-ray 2 views 07/12/16 IMPRESSION: Fixed hiatal hernia. Otherwise negative study Abdomen and pelvis CT with contrast 07/12/16 IMPRESSION: Fixed hiatal hernia. Otherwise negative study Consultations: Hematology/oncology Gastroenterology (Daija Barahona PA-C) Problems/Secondary Diagnoses: Severe Iron Deficiency Anemia Suspected drug reaction to IV iron (Ferrlecit) Suspected acute diastolic CHF due to fluids/PRBCs - resolved HTN Chronic pain syndrome Asthma Fibromyalgia Hiatal Hernia Former Tobacco Use h/o meningioma (Kennedy Alonso MD) Medication Reconciliation New Medications: Ferrous Sulfate (Iron) 325 Mg Tab 1 TAB PO DAILY for 30 Days, #30 TAB Prednisone Tab (Prednisone) 10 Mg Tab 10 MG PO DIRECTED, #10 TAB 0 Refills start 07/15/16: take 4 tabs day 1, 3 tabs day 2, 2 tabs day 3, 1 tab day 4. Take with food. Changed Medications: Esomeprazole Magnesium (Esomeprazole Magnesium) 40 Mg Cap 40 MG PO BID, #60 2 Refills (Changed from: DAILY; Removed Reason; 30; Refills: ) Continued Medications: Albuterol Sulfate (Proair Respiclick) 108 Mcg/Act Aer 2 PUFFS INH BID PRN for SOB/Wheezing Amitriptyline Hcl (Amitriptyline Hcl) 150 Mg Tab 50 MG PO HS Atorvastatin (Atorvastatin Calcium) 20 Mg Tab 20 MG PO HS, #30 Budesonide/Formoterol Fumarate (Symbicort 160/4.5 Inhaler ) Aero 1 PUFFS INH BID, INHALER Buspirone Hcl (Buspirone Hcl) 10 Mg Tab 10 MG PO BID, TAB Carbamazepine (Carbamazepine) 100 Mg Chew 100 MG PO BID, #60 Docusate Sodium (Stool Softener) 100 Mg Cap 100 MG PO DAILY PRN for Constipation Duloxetine HCl (Duloxetine HCl) 60 Mg Cap 60 MG PO QPM, #30 Furosemide (Furosemide) 20 Mg Tab 20 MG PO DAILY Metoprolol Tartrate (Lopressor) (Lopressor) 50 Mg Tab 50 MG PO BID, 0 Refills Nitroglycerin (Nitrostat) 0.4 Mg Sub 0.4 MG UT PRN, BTL Oxycodone/Acetaminophen 5MG/325MG (Oxycodone/Acetaminophen 5MG/325MG) 1 Tab Tab 1 TABLET PO Q12 PRN for Pain, TAB Oxymorphone Hcl (Oxymorphone Hydrochloride) 20 Mg Tab 20 MG PO Q12 PRN for PRN, #60 Sertraline HCl (Sertraline HCl) 50 Mg Tab 50 MG PO QPM, #30 Discharge Exam The patient was seen and examined this morning. Patient is status post IV iron infusion last evening; she had a reaction to this last evening where she had swelling of the hands and feet developed as well as mottling of the skin over her left arm right elbow and right knee. She was treated with IV Solu- Medrol and Benadryl which resolved the problem. There was no airway compromise or laryngeal edema. Patient reports she feels well's morning and is anticipating discharge to home. She denies any chest pain, chest tightness, flutter, palpitation, shortness of breath, abdominal pain, nausea, vomiting, lightheadedness or dizziness. ROS: 10 point review of systems was reviewed and is otherwise negative Physical exam: General: awake, alert, no apparent distress, + appears older than stated age Head: Normocephalic, atraumatic ENT: PERRL, EOMI, no pharyngeal exudate, mucous membranes moist Chest: Clear to auscultation, on room air, no adventitious breath sounds Cardiac: Regular rate and rhythm, no murmur, no JVD, normal peripheral pulses, good capillary refill Abdominal: NABS x 4 quadrants, soft, nontender to palpation, no rebound, guarding or tenderness Extremities: Normal inspection, mild 1+ peripheral edema BLE, no erythema, calfs nontender to palpation Psych: Normal mood and affect Neuro: AAO x 3, strength intact bilaterally and related 5/5, no motor deficits, speech is clear, no peripheral sensory deficits (Daija Barahona PA-C) Hospital Course H&P per Buck Hyde M.D. History of Present Illness Source: patient The patient is a 60-year-old female who is referred to the emergency department by Ashley Haskins PA-C pulmonary medicine, after having lab work performed which showed hemoglobin of 6.7. Patient's symptoms include orthostatic lightheadedness, palpitations, shortness of breath at rest and dyspnea on exertion. She has not noted blood in urine or stool. 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 She reports issues with her memory and clarity of thinking, this is been a problem for a number of years without a determined cause. Physical Exam Vital Signs Date Time Temp Pulse Resp B/P Pulse Ox O2 Delivery O2 Flow Rate FiO2 07/12/16 19:26 36.7 73 16 182/70 100 07/12/16 18:20 73 16 182/70 100 Room Air 07/12/16 17:11 74 18 144/86 100 Room Air 07/12/16 17:08 74 18 144/86 100 71 164/91 74 174/81 07/12/16 16:18 75 07/12/16 16:12 75 16 155/79 99 Room Air 07/12/16 16:10 99 Room Air 07/12/16 14:56 36.7 91 17 163/83 100 Room Air The patient is awake, well-developed and adequately nourished, alert and oriented 3, normocephalic and atraumatic, lying in bed and in no acute distress. HEENT--PERRL, EOMI, mucous membranes and oropharynx dry. Neck--supple, no JVD or bruits, thyroid normal, trachea midline, no adenopathy. Heart--normal S1 and S2, no extra beats, no murmurs, rubs or gallops. Lungs--clear bilaterally with good air movement, no respiratory distress, no accessory muscle use. Abdomen--normal bowel sounds and soft, nontender and nondistended, no hernias or masses, no organomegaly. Extremities--no cyanosis, clubbing or edema. There are good distal pulses b/l. Dermatologic--normal skin turgor, appears pale, warm and dry, no abnormal lymph nodes, no rash. Neurologic--cranial nerves II through XII grossly intact, motor and sensory examination normal. Rheumatologic--normal range of motion, nontender, muscles and joints. Psychiatric--normal affect. Hospital course This is a 60 yo F with PMHx of CAD, HTN, asthma, hyperlipidemia presenting with symptomatic anemia and hgb=6.7. The patient was transfused 2 units PRBCs on 03/18 without complication. The patient was seen by hematology/oncology and was recommended to start IV iron infusion while she was admitted. The patient received an iron infusion and developed a reaction with swelling to the hands and feet, mottling of the skin over different areas of the body. She was treated with IV Solu-Medrol and Benadryl which resolved her symptoms. There was no airway compromise or laryngeal edema. It is likely be additives of twice a day ferrous infusion caused her symptoms versus iron itself. The patient was started on oral iron tablet which she tolerated during her inpatient stay. GI was consulted during her inpatient stay and recommended that she have an outpatient colonoscopy/EGD completed within the next week. This has been set up as an outpatient. The patient's symptoms improved and she was stable for discharge to home. Symptomatic Hypochromic, microcytic anemia - Pt was transfused 2 U PRBCs, hgb improved to 9 and remained stable - Hemoccult test stools have been negative - Heme/onc consulted - appreciate recs- transferrin low: -Received IV ferritin while here, did not tolerate and developed adverse reaction of swelling in bilateral feet and hands. No laryngeal edema, airway compromise. Will start oral iron supplementation once daily for now and if she tolerates can be increased to twice daily. - Cont pantoprazole 40 mg IV twice a day. CAD Hypertension - continue metoprolol tartrate 50 mg BID, nitroglycerin sublingual 0.4 mg prn chest pain. - Hold [employer] lasix 20 mg daily for now - no peripheral edema or decreased breath sounds. The patient takes this, an as-needed basis as an outpatient for lower extremity edema History of meningioma - Follows with [facility] for this Anxiety/ depression/fibromyalgia -continue amitriptyline 50 mg QHS, buspirone 10 mg BID, duloxetine 60 mg QHS, sertraline 50 mg QPM and carbamazepine 100 mg BID. Asthma - Continue Symbicort 160/4.5 one puff BID. - Cont Xopenex with Atrovent nebulizer to use every 2 hours when necessary. - Patient had formal PFTs done about 1 year ago and she is due for repeat testing within the next 1-2 months Hypercholesterolemia -continue atorvastatin 20 mg QHS DVT ppx: teds, scds, CODE STATUS: FULL CODE Disposition: From home, discharged to home today Total Time Spent: Greater than 30 minutes This includes examination of the patient, discharge planning, medication reconciliation, and communication with other providers. (Daija Barahona, RACHEAL) Attending Attestation & Discharge Note: Pt seen/examined, chart reviewed, care plan d/w DOMI Barahona on day of discharge. I agree w/ the gunter components of her discharge summary except - patient will take PPI twice daily BY MOUTH (not IV). 60yo female who presented as a direct admission from the [facility] pulmonary office after she was discovered to be severely anemic. At time of admission hemoglobin was 6.7, MCV was <70, and ferritin was 3. She received 2 units of PRBCs. Discharge Hemoglobin was about 10. She was seen in consult by heme/onc and GI. Hematology recommended IV iron while hospitalized; unfortunately it appears she had a reaction to the Ferrlecit. She was treated with IV steroids, benadryl, and nebulizer treatments for this reaction. She will discharge to home on prednisone for this reaction. [facility] plans to perform outpatient EGD & colonoscopy in the next 1-2 weeks following discharge. Of note - stool was heme NEGATIVE during this stay. Celiac panel was pending at time of discharge. Her stay was complicated not only by the reaction to the IV iron but also suspected acute diastolic CHF. She received 1 dose of IV lasix for such. Discharge exam: gen - nad skin - pallor improved heart - RRR, s1, s2 lungs - scant end-exp wheeze b/l abd - soft, NT, ND, BS+, no HSM ext - trace edema The patient has scheduled f/u with [facility], [facility] heme/onc, and also is scheduled for an outpatient stress test in the next 1-2 months due to chronic dyspnea and other cardiopulmonary complaints (records indicate she has had an abnormal stress test in the past). She will need to take oral iron for 3-6 months depending on clinical response. Kennedy Alonso MD (Kennedy Alonso MD) Discharge Instructions Please refer to the electronic Patient Visit Report (Discharge Instructions) for additional information. (Daija Barahona PA-C) Follow-Up Follow up with your Primary Care Provider within 1 week. Follow-up with GI for colonoscopy/EGD within the next week. (Daija Barahona PA-C) [facility] Hematology Office with Dr. Mauri Carrasco on SundayJuly 18 at 8:45 am. (Kennedy Alonso MD) Additional Copies To Michael Lnio D.O.; Tino Norris PA-C; Jasmin Lofton CRNP; Mauri Carrasco M.D.
[2016-07-14 13:06] VITALS: BP 164/83; PULSE 81; TEMP 36.7; O2SAT 96
[2016-07-14 14:00] VITALS: PULSE 80; O2SAT 96
[2016-07-14] MEDS ORDERED: ESOM1CAP34 PO (14:14)
[2016-07-14] MEDS ORDERED: PRED10TA PO (14:14)
[2016-07-15 22:30] LABS: IGA SERUM 133 mg/dL (81-463); TIS TRANS IGA 1 U/mL (<4)
--- NOTE | 2016-07-17 11:58 | EDITING REQUIRED CODING QUERY ---
CODING QUERY To promote full compliance with coding requirements relating to patient care, provider participation is requested in all cases of assembly machine tool setter uncertainty. Please assist us with the question(s) below: Coding Question(s): Dr. Alonso, On the progress note dated 07/13, the following is documented: ?acute diastolic CHF 2nd to PRBCs IVF - This information is not documented on the discharge summary. Please clarify if the acute diastolic CHF was: (x ) present and treated during this admission ( ) ruled out ( ) other, please explain Physician's Response(s): Thank you for your time, GOGO Avila, STRATEGIC PLANNER
[2016-07-17 13:42] LABS: HCT 23.1 % (35.0-45.0); HEMOGLOBIN A2 1.5 % (1.8-3.5); MCH 19.6 pg (27.0-33.0); MCV 64.5 FL (80.0-100.0); RBC 3.58 Mill/uL (3.80-5.10)
[2016-07-18] MEDS ORDERED: NXM/40 PO (09:51)
[2016-08-30] MEDS ORDERED: FERR1TAB13 PO (12:40)
[2016-08-30] MEDS ORDERED: AMT50 PO (12:40)
[2016-08-30] MEDS ORDERED: VNTHFA/IN INH (12:40)
== END 2016-07-14 14:59 | disposition home or self-care (01) | DRG 811 ==
LOC: ENRESERVDT → ENRESERVTM → C.EDB 14:50 → C.2T 18:37
PROVIDERS: ADMIT Hospitalist; ATTEND Internal Medicine
DX: D50.9 Iron deficiency anemia, unspecified (principal); I50.31 Acute diastolic (congestive) heart failure; Q44.7 Other congenital malformations of liver; M79.89 Other specified soft tissue disorders; T45.4X5A Adverse effect of iron and its compounds, initial encounter; Y92.230 Patient room in hospital as the place of occurrence of the external cause; E87.6 Hypokalemia; D13.9 Benign neoplasm of ill-defined sites within the digestive system; I25.10 Atherosclerotic heart disease of native coronary artery without angina pectoris; I10 Essential (primary) hypertension; J45.909 Unspecified asthma, uncomplicated; E78.00 Pure hypercholesterolemia, unspecified; G89.4 Chronic pain syndrome; M79.7 Fibromyalgia; F41.9 Anxiety disorder, unspecified; F32.9 Major depressive disorder, single episode, unspecified; Z86.19 Personal history of other infectious and parasitic diseases; Z87.891 Personal history of nicotine dependence; Z79.51 Long term (current) use of inhaled steroids; Z79.899 Other long term (current) drug therapy; Z79.891 Long term (current) use of opiate analgesic

== ENCOUNTER 2021-10-29 11:14 | Observation (INO) ==
--- NOTE | 2021-10-29 12:17 | Emergency Department Note ---
History of Present Illness General Chief Complaint: Shortness of Breath/Dyspnea Stated Complaint: SEVERE ANEMIA/OFF BALANCE/SOB/CHEST TIGHTNESS Time Seen by Provider: 10/29/21 11:45 History of Present Illness Provider Complaint: shortness of breath Onset (ago): month(s) (1) Severity: moderate Maximum Pain Intensity: 5 Relieved By: + nothing Exacerbated By: + nothing Known history of: COPD Associated symptoms: no chest pain, no fever, no cough, no wheezing, no sputum production, no polyuria, no diaphoresis, no nausea/vomiting, no abdominal pain, no chest congestion or no lightheadedness Home Medications Medication Instructions Recorded Confirmed Type Oxygen Home #2 L 06/02/19 08/23/20 Rx ferrous sulfate 325 mg (65 mg 325 mg PO DAILY 06/02/19 08/10/21 History iron) tablet (FeroSul) hydrocodone 7.5 mg-acetaminophen 15 ml PO Q8H PRN 06/02/19 08/10/21 History 325 mg/15 mL oral solution metoprolol tartrate 50 mg tablet 50 mg PO BID 06/02/19 10/29/21 History naloxegol 25 mg tablet (Movantik) 25 mg PO QAM 06/02/19 08/10/21 History nitroglycerin 0.4 mg sublingual 0.4 mg sublingual Q5M PRN 07/20/20 08/10/21 History tablet Portable Oxygen #1 ea 08/10/21 08/10/21 Rx albuterol sulfate 90 mcg/actuation 1 inh inhalation QID PRN shortness 08/10/21 08/10/21 Rx aerosol inhaler (Proventil HFA) of breath or wheezing #8.5 grams coenzyme Q10 60 mg tablet 60 mg PO DAILY 08/10/21 10/29/21 History docusate sodium 100 mg tablet 100 mg PO DAILY 08/10/21 10/29/21 History furosemide 20 mg tablet 40 mg PO DAILY PRN 08/10/21 08/10/21 History multivitamin 1 tab PO DAILY 08/10/21 08/10/21 History red yeast rice 600 mg capsule 600 mg PO DAILY 08/10/21 08/10/21 History acetaminophen 500 mg tablet 500 mg PO QID PRN Pain 10/29/21 10/29/21 History Allergies Allergy/AdvReac Type Severity Reaction Status Date / Time benzyl alcohol Allergy Severe SEE BELOW Verified 08/10/21 14:12 sucrose Allergy Severe SEE BELOW Verified 08/10/21 14:12 niacin Allergy Intermediate lips and Verified 08/10/21 14:12 tongue swell iron AdvReac Severe SEE BELOW Verified 08/10/21 14:12 Past Med/Surg History Medical History Cerebral meningioma Chronic pain syndrome Depression Diverticulitis Fibromyalgia Hemangioma of spleen Hiatal hernia HTN (hypertension) Hyperlipidemia, mixed Memory loss Multiple pulmonary nodules Multiple thyroid nodules Surgical History History of hysterectomy Loss of teeth due to extraction Family History Father Colon cancer Esophageal cancer Prostate cancer Mother Abdominal aortic aneurysm Hypercholesterolemia Daughter Fibromyalgia Sister Hypertension Daughter Thyroid cancer Systemic lupus Social History Smoking Status: Never smoker Age Started Using Tobacco: 19; Age Quit Using Tobacco: 58; packs per day: 1; Hx Substance Use: Yes Preferred Language: Japanese marital status: Single current occupational status: disabled Feels Safe at Home: Yes Review of Systems A total of 10 systems reviewed and were otherwise negative Physical Exam Vital Signs: Vital Signs - 24 hr 10/29/21 11:20 10/29/21 12:04 10/29/21 12:04 Temperature 36.9 C Temperature Source Temporal Artery Sc an Pulse Rate 76 65 Pulse Rate from Sp O2 Sensor Pulse Rhythm Regular Respiratory Rate 18 18 Respiratory Effort / Characteristics Respiratory Depth Respiratory Patter n Blood Pressure 191/71 H Blood Pressure Letitia n 111 Pulse Oximetry 100 100 2 L Oxygen Delivery Me thod Room Air Nasal Cannula Room Air Oxygen Flow Rate 2 100 Sepsis Recent Feve r Within 48 Hours No Sepsis New/Unexpla ined Change in Men nate Status N/A Sepsis Action Take n by Nursing No Action Required 10/29/21 12:05 10/29/21 11:51 10/29/21 11:51 Temperature Temperature Source Pulse Rate 71 Pulse Rate from Sp O2 Sensor 73 Pulse Rhythm Respiratory Rate 13 Respiratory Effort / Characteristics Non-Labored Sponta neous Respiratory Depth Normal Respiratory Patter n Regular Blood Pressure 216/75 H Blood Pressure Letitia n 122 Pulse Oximetry 100 Oxygen Delivery Me thod Nasal Cannula Oxygen Flow Rate 2 Sepsis Recent Feve r Within 48 Hours Sepsis New/Unexpla ined Change in Men nate Status Sepsis Action Take n by Nursing 10/29/21 12:00 10/29/21 12:00 10/29/21 12:30 Temperature Temperature Source Pulse Rate 67 63 Pulse Rate from Sp O2 Sensor 66 Pulse Rhythm Respiratory Rate 12 18 Respiratory Effort / Characteristics Respiratory Depth Respiratory Patter n Blood Pressure 212/70 H Blood Pressure Letitia n 117 Pulse Oximetry 100 Oxygen Delivery Me thod Nasal Cannula Oxygen Flow Rate 2 Sepsis Recent Feve r Within 48 Hours Sepsis New/Unexpla ined Change in Men nate Status Sepsis Action Take n by Nursing 10/29/21 13:00 10/29/21 13:00 10/29/21 13:30 Temperature Temperature Source Pulse Rate 67 Pulse Rate from Sp O2 Sensor 66 Pulse Rhythm Respiratory Rate 12 Respiratory Effort / Characteristics Respiratory Depth Respiratory Patter n Blood Pressure 171/105 H 189/91 H Blood Pressure Letitia n 127 123 Pulse Oximetry 100 Oxygen Delivery Me thod Nasal Cannula Oxygen Flow Rate 2 Sepsis Recent Feve r Within 48 Hours Sepsis New/Unexpla ined Change in Men nate Status Sepsis Action Take n by Nursing 10/29/21 13:30 10/29/21 14:00 10/29/21 14:00 Temperature Temperature Source Pulse Rate 67 66 Pulse Rate from Sp O2 Sensor 66 Pulse Rhythm Respiratory Rate 16 21 Respiratory Effort / Characteristics Respiratory Depth Respiratory Patter n Blood Pressure 188/101 H Blood Pressure Letitia n 130 Pulse Oximetry 100 100 Oxygen Delivery Me thod Nasal Cannula Nasal Cannula Oxygen Flow Rate 2 2 Sepsis Recent Feve r Within 48 Hours Sepsis New/Unexpla ined Change in Men nate Status Sepsis Action Take n by Nursing Physical Exam: Physical Exam GENERAL: She is oriented to person, place, and time. She appears well-developed and well-nourished. She does not appear distressed. HENT: Exam performed. -Head: Normocephalic and atraumatic. -Right Ear: External ear normal. No mastoid tenderness. -Left Ear: External ear normal. No mastoid tenderness. -Mouth/Throat: The oropharynx is clear and moist. No trismus in the jaw. No dental abscesses or uvula swelling. No oropharyngeal exudate or tonsillar abscesses. EYES: Conjunctivae and EOM are normal. Pupils are equal, round, and reactive to light. Right eye exhibits no discharge. Left eye exhibits no discharge. No scleral icterus. NECK: Normal range of motion. Neck supple. No JVD present. No spinous process tenderness present. No carotid bruit present. No rigidity. No tracheal deviation and normal range of motion present. No Brudzinski's sign and no Kernig's sign noted. CV: Normal rate, regular rhythm, normal heart sounds and intact distal pulses. There is no peripheral edema. Palpable radial pulses bue. PULM/CHEST: Effort normal and breath sounds normal. No respiratory distress. No stridor. She has no wheezes. She has no rales. -Chest Wall: She exhibits no tenderness. ABD: The abdomen is soft. Bowel sounds are normal. She has no distension. No mass is present. There is no tenderness. There is no rebound, no guarding, no Gibbs's sign and no tenderness at McBurney's point. Rovsig negative MUSC/SKEL: Normal range of motion. There is no peripheral edema, tenderness or deformity. LYMPH: No cervical adenopathy. NEURO: She is alert and oriented to person, place, and time. She has normal strength. No cranial nerve deficit or sensory deficit. Coordination and gait normal. GCS eye subscore is 4. GCS verbal subscore is 5. GCS motor subscore is 6. Cerebellar tests wnl. SKIN: Pale PSYCH: She has a normal mood and affect. Behavior is normal. Judgment and thought content normal. Course Course 1145: The patient was evaluated in room B5. A complete history and physical exam was performed Cardiac monitoring: An order was placed for continuous cardiac monitoring. The monitor shows a rate of 70 with sinus rhythm 1247: Vital signs stable. Patient's hemoglobin 5.2. Exam performed with female nursing quoter Fatmata at bedside no gross red blood no melena Hemoccult negative. Will be transfused 2 units packed red blood cells [facility]. Medical Decision Making Laboratory Data Result diagrams: 10/29/21 13:22 10/29/21 12:01 Lab Results 10/29/21 10/29/21 10/29/21 Range/Units 12:01 12:01 12:01 WBC 7.06 (4.8-10.8) K/ul RBC 2.68 L (3.93-5.22) M/uL Hgb 5.1 L* (12.0-16.0) g/dl Hct 18.7 L* (34.1-44.9) % MCV 69.8 L (80.0-100.0) fL MCH 19.0 L (25.0-34.0) pg MCHC 27.3 L (32.0-36.0) g/dL RDW Std Deviation 45.7 (36.4-46.3) fL RDW Coeff of Terrance 18.0 H (11.5-14.5) % Plt Count 466 H (130-400) K/uL MPV 10.0 (9.4-12.3) fL Immature Gran % (Auto) 0.3 % Neut % (Auto) 65.8 % Lymph % (Auto) 24.5 % [place] % (Auto) 6.9 % Eos % (Auto) 1.7 % Baso % (Auto) 0.8 % Reticulocyte % (Auto) (0.5-2.0) % Neut # (Auto) 4.64 (1.4-6.5) K/uL Lymph # (Auto) 1.73 (1.2-3.4) K/uL [place] # (Auto) 0.49 (0.24-0.82) K/uL Eos # (Auto) 0.12 (0-0.50) K/uL Baso # (Auto) 0.06 (0-0.2) K/uL Reticulocyte # (0.02-0.10) 10^6/uL Immature Gran # (Auto) 0.02 (0.00-0.02) K/uL Absolute Nucleated RBC 0.02 H (0-0) K/uL Nucleated RBC % (auto) 0.3 % Polychromasia 1+ Hypochromasia Present Microcytosis Present Immature Retic Fraction (3.0-15.9) % Retic Hgb Content (28.2-36.6) pg PT 11.5 (9.0-12.0) Seconds INR 1.1 (0.9-1.1) APTT 24.2 (21.0-31.0) Seconds PTT Ratio 0.9 Sodium 140 (136-145) mmol/L Potassium 3.9 (3.5-5.1) mmol/L Chloride 110 H (98-107) mmol/L Carbon Dioxide 21 (21-32) mmol/L Anion Gap 9 (3-11) BUN 7 (6-23) mg/dl Creatinine 0.64 (0.6-1.2) mg/dl Est Cr Clr Drug Dosing 79.8 ml/min Est GFR ( Amer) 108.5 ml/min Est GFR (Non-Af Amer) 93.6 ml/min BUN/Creatinine Ratio 10.9 (10-20) Glucose 110 H (70-99(Fasting)) mg/dl Calcium 9.1 (8.5-10.1) mg/dl Magnesium 2.0 (1.7-2.4) mg/dl Iron (35-150) mcg/dl Transferrin (200-360) mg/dl Ferritin (8-388) ng/ml Total Bilirubin (0.2-1.0) mg/dl Direct Bilirubin (0-0.2) mg/dl AST (13-39) U/L ALT (7-52) U/L Alkaline Phosphatase (34-104) U/L Lactate Dehydrogenase (86-244) U/L Troponin I High Sens 3.4 (0-14) pg/ml B-Natriuretic Peptide (0-100) pg/ml Total Protein (6.0-8.3) gm/dl Albumin (3.4-5.0) gm/dl Lipase 25 (11-82) U/L Vitamin B12 (180-914) pg/ml Folate (>5.38) ng/ml SARS-CoV-2, RNA, NAAT (NEGATIVE) Blood Type Blood Type Recheck Antibody Screen Crossmatch 10/29/21 10/29/21 10/29/21 Range/Units 12:01 12:01 12:40 WBC (4.8-10.8) K/ul RBC (3.93-5.22) M/uL Hgb (12.0-16.0) g/dl Hct (34.1-44.9) % MCV (80.0-100.0) fL MCH (25.0-34.0) pg MCHC (32.0-36.0) g/dL RDW Std Deviation (36.4-46.3) fL RDW Coeff of Terrance (11.5-14.5) % Plt Count (130-400) K/uL MPV (9.4-12.3) fL Immature Gran % (Auto) % Neut % (Auto) % Lymph % (Auto) % [place] % (Auto) % Eos % (Auto) % Baso % (Auto) % Reticulocyte % (Auto) (0.5-2.0) % Neut # (Auto) (1.4-6.5) K/uL Lymph # (Auto) (1.2-3.4) K/uL [place] # (Auto) (0.24-0.82) K/uL Eos # (Auto) (0-0.50) K/uL Baso # (Auto) (0-0.2) K/uL Reticulocyte # (0.02-0.10) 10^6/uL Immature Gran # (Auto) (0.00-0.02) K/uL Absolute Nucleated RBC (0-0) K/uL Nucleated RBC % (auto) % Polychromasia Hypochromasia Microcytosis Immature Retic Fraction (3.0-15.9) % Retic Hgb Content (28.2-36.6) pg PT (9.0-12.0) Seconds INR (0.9-1.1) APTT (21.0-31.0) Seconds PTT Ratio Sodium (136-145) mmol/L Potassium (3.5-5.1) mmol/L Chloride (98-107) mmol/L Carbon Dioxide (21-32) mmol/L Anion Gap (3-11) BUN (6-23) mg/dl Creatinine (0.6-1.2) mg/dl Est Cr Clr Drug Dosing ml/min Est GFR ( Amer) ml/min Est GFR (Non-Af Amer) ml/min BUN/Creatinine Ratio (10-20) Glucose (70-99(Fasting)) mg/dl Calcium (8.5-10.1) mg/dl Magnesium (1.7-2.4) mg/dl Iron (35-150) mcg/dl Transferrin (200-360) mg/dl Ferritin (8-388) ng/ml Total Bilirubin (0.2-1.0) mg/dl Direct Bilirubin (0-0.2) mg/dl AST (13-39) U/L ALT (7-52) U/L Alkaline Phosphatase (34-104) U/L Lactate Dehydrogenase (86-244) U/L Troponin I High Sens (0-14) pg/ml B-Natriuretic Peptide 176 H (0-100) pg/ml Total Protein (6.0-8.3) gm/dl Albumin (3.4-5.0) gm/dl Lipase (11-82) U/L Vitamin B12 (180-914) pg/ml Folate (>5.38) ng/ml SARS-CoV-2, RNA, NAAT NEGATIVE (NEGATIVE) Blood Type O Negative Blood Type Recheck Antibody Screen NEGATIVE Crossmatch See Detail 10/29/21 10/29/21 10/29/21 Range/Units 13:22 13:22 13:22 WBC 6.47 (4.8-10.8) K/ul RBC 2.69 L (3.93-5.22) M/uL Hgb 5.2 L* (12.0-16.0) g/dl Hct 18.5 L* (34.1-44.9) % MCV 68.8 L (80.0-100.0) fL MCH 19.3 L (25.0-34.0) pg MCHC 28.1 L (32.0-36.0) g/dL RDW Std Deviation 44.3 (36.4-46.3) fL RDW Coeff of Terrance 17.9 H (11.5-14.5) % Plt Count 449 H (130-400) K/uL MPV 9.9 (9.4-12.3) fL Immature Gran % (Auto) 0.3 % Neut % (Auto) 65.6 % Lymph % (Auto) 24.7 % [place] % (Auto) 7.0 % Eos % (Auto) 1.5 % Baso % (Auto) 0.9 % Reticulocyte % (Auto) 2.7 H (0.5-2.0) % Neut # (Auto) 4.24 (1.4-6.5) K/uL Lymph # (Auto) 1.60 (1.2-3.4) K/uL [place] # (Auto) 0.45 (0.24-0.82) K/uL Eos # (Auto) 0.10 (0-0.50) K/uL Baso # (Auto) 0.06 (0-0.2) K/uL Reticulocyte # 0.07 (0.02-0.10) 10^6/uL Immature Gran # (Auto) 0.02 (0.00-0.02) K/uL Absolute Nucleated RBC (0-0) K/uL Nucleated RBC % (auto) % Polychromasia 1+ Hypochromasia Present Microcytosis Present Immature Retic Fraction 40.0 H (3.0-15.9) % Retic Hgb Content 15.4 L (28.2-36.6) pg PT (9.0-12.0) Seconds INR (0.9-1.1) APTT (21.0-31.0) Seconds PTT Ratio Sodium (136-145) mmol/L Potassium (3.5-5.1) mmol/L Chloride (98-107) mmol/L Carbon Dioxide (21-32) mmol/L Anion Gap (3-11) BUN (6-23) mg/dl Creatinine (0.6-1.2) mg/dl Est Cr Clr Drug Dosing ml/min Est GFR ( Amer) ml/min Est GFR (Non-Af Amer) ml/min BUN/Creatinine Ratio (10-20) Glucose (70-99(Fasting)) mg/dl Calcium (8.5-10.1) mg/dl Magnesium (1.7-2.4) mg/dl Iron 13 L (35-150) mcg/dl Transferrin 372 H (200-360) mg/dl Ferritin 37.4 (8-388) ng/ml Total Bilirubin 0.3 (0.2-1.0) mg/dl Direct Bilirubin 0.0 (0-0.2) mg/dl AST 11 L (13-39) U/L ALT 7 (7-52) U/L Alkaline Phosphatase 67 (34-104) U/L Lactate Dehydrogenase (86-244) U/L Troponin I High Sens (0-14) pg/ml B-Natriuretic Peptide (0-100) pg/ml Total Protein 6.6 (6.0-8.3) gm/dl Albumin 4.3 (3.4-5.0) gm/dl Lipase (11-82) U/L Vitamin B12 176 L (180-914) pg/ml Folate 18.58 (>5.38) ng/ml SARS-CoV-2, RNA, NAAT (NEGATIVE) Blood Type Blood Type Recheck Antibody Screen Crossmatch 10/29/21 10/29/21 Range/Units 13:22 13:26 WBC (4.8-10.8) K/ul RBC (3.93-5.22) M/uL Hgb (12.0-16.0) g/dl Hct (34.1-44.9) % MCV (80.0-100.0) fL MCH (25.0-34.0) pg MCHC (32.0-36.0) g/dL RDW Std Deviation (36.4-46.3) fL RDW Coeff of Terrance (11.5-14.5) % Plt Count (130-400) K/uL MPV (9.4-12.3) fL Immature Gran % (Auto) % Neut % (Auto) % Lymph % (Auto) % [place] % (Auto) % Eos % (Auto) % Baso % (Auto) % Reticulocyte % (Auto) (0.5-2.0) % Neut # (Auto) (1.4-6.5) K/uL Lymph # (Auto) (1.2-3.4) K/uL [place] # (Auto) (0.24-0.82) K/uL Eos # (Auto) (0-0.50) K/uL Baso # (Auto) (0-0.2) K/uL Reticulocyte # (0.02-0.10) 10^6/uL Immature Gran # (Auto) (0.00-0.02) K/uL Absolute Nucleated RBC (0-0) K/uL Nucleated RBC % (auto) % Polychromasia Hypochromasia Microcytosis Immature Retic Fraction (3.0-15.9) % Retic Hgb Content (28.2-36.6) pg PT (9.0-12.0) Seconds INR (0.9-1.1) APTT (21.0-31.0) Seconds PTT Ratio Sodium (136-145) mmol/L Potassium (3.5-5.1) mmol/L Chloride (98-107) mmol/L Carbon Dioxide (21-32) mmol/L Anion Gap (3-11) BUN (6-23) mg/dl Creatinine (0.6-1.2) mg/dl Est Cr Clr Drug Dosing ml/min Est GFR ( Amer) ml/min Est GFR (Non-Af Amer) ml/min BUN/Creatinine Ratio (10-20) Glucose (70-99(Fasting)) mg/dl Calcium (8.5-10.1) mg/dl Magnesium (1.7-2.4) mg/dl Iron (35-150) mcg/dl Transferrin (200-360) mg/dl Ferritin (8-388) ng/ml Total Bilirubin (0.2-1.0) mg/dl Direct Bilirubin (0-0.2) mg/dl AST (13-39) U/L ALT (7-52) U/L Alkaline Phosphatase (34-104) U/L Lactate Dehydrogenase 151 (86-244) U/L Troponin I High Sens (0-14) pg/ml B-Natriuretic Peptide (0-100) pg/ml Total Protein (6.0-8.3) gm/dl Albumin (3.4-5.0) gm/dl Lipase (11-82) U/L Vitamin B12 (180-914) pg/ml Folate (>5.38) ng/ml SARS-CoV-2, RNA, NAAT (NEGATIVE) Blood Type Blood Type Recheck O Negative Antibody Screen Crossmatch Imaging Data Radiologist's Impression: Chest X-Ray 10/29/21 11:46 XR chest 1V portable HISTORY: 66 years-old Female Chest Pain . Acute chest pain with shortness of breath COMPARISON: Chest CT 10/18/2021 TECHNIQUE: Portable AP view of the chest FINDINGS: Cardiomediastinal and hilar silhouettes are within normal limits. Moderate sized hiatal hernia. No pneumothorax, pleural effusion, airspace consolidation or overt pulmonary edema. Bones of the chest appear grossly intact. IMPRESSION: 1. No acute process of the chest. 2. Moderate hiatal hernia. ACT 112: Negative or not required by law. The above report was generated using voice recognition software. It may contain grammatical, syntax or spelling errors. Electronically signed by: Yoel Bautista M.D. 10/29/2021 12:[address] 10/29/21 11:46 CT head/brain wo con CLINICAL HISTORY: 66 years-old Female with weakness. Acute weakness TECHNIQUE: Multiple axial CT images of the head were obtained without contrast. A dose lowering technique was utilized adhering to the principles of ALARA. CT DOSE: 614.27 mGy.cm COMPARISON: None. FINDINGS: No acute intracranial hemorrhage, midline shift, intracranial mass, hydrocephalus, territorial ischemia or abnormal extra-axial collection. Minimal involutional changes. Senescent calcifications of the basal ganglia. The calvarium is intact. The paranasal sinuses, mastoid air cells, and middle ear cavities are clear. IMPRESSION: No acute intracranial abnormality. ACT 112: Negative or not required by law. The above report was generated using voice recognition software. It may contain grammatical, syntax or spelling errors. Electronically signed by: Yoel Bautista M.D. 10/29/2021 12:18 PM ECG Data Interpretation: Sinus rhythm with rate of 69. CA and QTc intervals within normal limits. QRS 78. No ST elevation or ST depression. MDM Narrative Vital signs stable. Patient's hemoglobin 5.2. Will be transfused 2 units packed red blood cells [facility]. Impression & Plan Anemia, Dyspnea Critical Care Time Critical Care Time: Yes Total Critical Care Time: 56 I have personally spent greater than 56 minutes of critical care time in the di rect management of this patient. This includes bedside care, interpretation of diagnostic studies, and testing, discussion with consultants, patient, and family members, and other required patient management activities. This 56 minutes is in excess of all separately billable procedures. Discharge Plan Visit Data Chief Complaint: Shortness of Breath/Dyspnea Stated Complaint: SEVERE ANEMIA/OFF BALANCE/SOB/CHEST TIGHTNESS ED Provider: Albert Pan Discharge Problem: Anemia, Dyspnea Patient Disposition: Admitted As Inpatient Forms Stand Alone Forms: My [facility] Prescriptions Prescriptions: No Action nitroglycerin 0.4 mg tablet, sublingual 0.4 mg sublingual Q5M PRN Rx Instructions: do not exceed 3 doses per episode metoprolol tartrate 50 mg tablet 50 mg PO BID ferrous sulfate [FeroSul] 325 mg (65 mg iron) tablet 325 mg PO DAILY hydrocodone-acetaminophen 7.5-325 mg/15 mL solution 15 ml PO Q8H PRN Movantik 25 mg tablet 25 mg PO QAM (DME) Oxygen Home Liters Per Minute See Rx Instructions .ROUTE .MEDSUPPLY Qty: 2 0RF Rx Instructions: Home O2: 2LPM via NC with exertion. Humidifcation, tubing, supplies. furosemide 20 mg tablet 40 mg PO DAILY PRN docusate sodium 100 mg tablet 100 mg PO DAILY red yeast rice 600 mg capsule 600 mg PO DAILY Rx Instructions: give with meal/snack coenzyme Q10 60 mg tablet 60 mg PO DAILY multivitamin Tablet 1 tab PO DAILY folic acid 400 mcg tablet 0.4 mg PO DAILY albuterol sulfate [Proventil HFA] 90 mcg/actuation HFA aerosol inhaler 1 inh inhalation QID PRN (Reason: shortness of breath or wheezing) Qty: 8.5 4RF (DME) Portable Oxygen Misc See Rx Instructions .MEDSUPPLY Qty: 1 0RF Rx Instructions: Oxygen 2 liters continuous via nasal cannula on exertion with portable concentrator. KAT 99 Referrals Referrals: Crys Lay CRNP [Primary Care Provider] -
--- NOTE | 2021-10-29 12:19 | CT Scan Report ---
CT head/brain wo con CLINICAL HISTORY: 66 years-old Female with weakness. Acute weakness TECHNIQUE: Multiple axial CT images of the head were obtained without contrast. A dose lowering tech nique was utilized adhering to the principles of ALARA. CT DOSE: 614.27 mGy.cm COMPARISON: None. FINDINGS: No acute intracranial hemorrhage, midline shift, intracranial mass, hydrocephalus, territorial ischem ia or abnormal extra-axial collection. Minimal involutional changes. Senescent calcifications of the basal ganglia. The calvarium is intact. The paranasal sinuses, mastoid air cells, and middle ear cavities are clear . IMPRESSION: No acute intracranial abnormality. ACT 112: Negative or not required by law. The above report was generated using voice recognition software. It may contain grammatical, syntax o r spelling errors. Electronically signed by: Yoel Bautista M.D. 10/29/2021 12:18 PM
[2021-10-29 12:23] LABS: INR 1.1 (0.9-1.1); Partial Thromboplastin Ratio 0.9; Partial Thromboplastin Time 24.2 Seconds (21.0-31.0); Prothrombin Time 11.5 Seconds (9.0-12.0)
[2021-10-29 12:32] LABS: Hematocrit (blood only) 18.7 % (34.1-44.9); Hemoglobin 5.1 g/dl (12.0-16.0); Mean Corpuscular Hgb Conc 27.3 g/dL (32.0-36.0); Mean Corpuscular Volume 69.8 fL (80.0-100.0); Nucleated RBC # (auto) 0.02 K/uL (0-0); Nucleated RBC % (auto) 0.3 %; Platelet Count 466 K/uL (130-400); RDW Standard Deviation 45.7 fL (36.4-46.3); Red Blood Count 2.68 M/uL (3.93-5.22); White Blood Count 7.06 K/ul (4.8-10.8)
[2021-10-29 12:33] LABS: Basophils # (auto) 0.06 K/uL (0-0.2); Basophils % (auto) 0.8 %; Eosinophils # (auto) 0.12 K/uL (0-0.50); Eosinophils % (auto) 1.7 %; Hypochromasia Present; Immature Granulocytes # (auto) 0.02 K/uL (0.00-0.02); Immature Granulocytes % (auto) 0.3 %; Lymphocytes # (auto) 1.73 K/uL (1.2-3.4); Lymphocytes % (auto) 24.5 %; Microcytosis Present; Monocytes # (auto) 0.49 K/uL (0.24-0.82); Monocytes % (auto) 6.9 %; Neutrophils # (auto) 4.64 K/uL (1.4-6.5); Neutrophils % (auto) 65.8 %; Polychromasia 1+
[2021-10-29] MEDS ORDERED: SODIUM CHLORIDE 0.9% 250 ML IV PRN (12:36)
--- NOTE | 2021-10-29 12:44 | XRay Report ---
XR chest 1V portable HISTORY: 66 years-old Female Chest Pain . Acute chest pain with shortness of breath COMPARISON: Chest CT 10/18/2021 TECHNIQUE: Portable AP view of the chest FINDINGS: Cardiomediastinal and hilar silhouettes are within normal limits. Moderate sized hiatal hernia. No pn eumothorax, pleural effusion, airspace consolidation or overt pulmonary edema. Bones of the chest chiara ear grossly intact. IMPRESSION: 1. No acute process of the chest. 2. Moderate hiatal hernia. ACT 112: Negative or not required by law. The above report was generated using voice recognition software. It may contain grammatical, syntax o r spelling errors. Electronically signed by: Yoel Bautista M.D. 10/29/2021 12:43 PM
[2021-10-29 13:05] LABS: Troponin I High Sensitivity 3.4 pg/ml (0-14)
[2021-10-29 13:06] LABS: BUN Creatinine Ratio 10.9 (10-20); Calcium 9.1 mg/dl (8.5-10.1); Creatinine Clr Calc Pharmacy 79.8 ml/min; Est GFR (African American) 108.5 ml/min; Est GFR (Non-African American) 93.6 ml/min; Potassium 3.9 mmol/L (3.5-5.1)
--- NOTE | 2021-10-29 13:37 | History & Physical Report ---
Date of Service October 29, 2021 Assessment & Plan (1) Anemia: Plan: Patient with history of iron deficiency anemia- reports she gets her labs checked frequently. - Microcytic hypochromic - She is non compliant with her iron sulfate- consider trial of gluconate orally - Iron Fe, ferritin, TIBC, LDH, B12, pending - repeat CBC remains with HGB 5.2- platelet count normal, WBC count normal - Transfuse 2 units PRBC follow in AM (2) Hiatal hernia: Plan: Chronic with GERD - will add PPI - (3) Fibromyalgia: Plan: Chronic pain syndrome - continue loratab 7.5 prn - she does not use her naloxegel as she gets relief with her stool softners - but always has on hand incase she needs it (4) HTN (hypertension): Plan: Recently changed from Metoprolol Succ to Tartrate secondary to fatigue - 50mg PO BID - Lasix PRN at home, scheduled for the morning following her transfusions (5) Multiple thyroid nodules: Plan: follows with PCP no recent imaging noted in our system (6) COPD (chronic obstructive pulmonary disease): Plan: PFTS 10/19 - Remains on albuterol - has not felt benefit from her previous inhalers had a trial of Stiolto- caused nosebleeds so it was terminated - pulmonary nodules 4mm follows with pulmonary for CT annually (7) History of gastroesophageal reflux (GERD): Plan: NOt on PPI on home medicaitons - will initiate (8) Meningioma: Plan: Stable follows with annual imaging at [facility] (9) Opioid dependence: Plan: As above continue home loratab History of Present Illness Primary Care Provider: AMILCAR Medina 66 YOF with medical history of: COPD, Pulmonary nodules, former smoker, Anemia, Hiatal, chronic fatigue, multinodular goider, chronic pain syndrome, opioid dependance, abdominal hernia, tumor of spleen, depression, HTN, posterior fossa meningioma (serial immaging selected by alpesh). Patient reports that she came to the EMD today for increase in dyspnea and cramping in her legs. She has a history of anemia and is on iron supplementation at home which she takes every 2-3 days because it causes her GI upset and distress. So with her symptoms she came to the EMD to get evaluated. The patient does not remember when her last colonoscopy was but choses to do the Cologuard screening for which she just completed a couple weeks ago. Her last EGD was approx 10 years ago. In the EMD the patient had routine labs performed to include INR, and type and cross. She was ordered 2 units of PRBC by the EMD and requested admission. Will add Iron panel, LDH, B12, and liver function tests. Patient will be admitted for following her symptoms and HGB and iron levels. Patient reports her last history of transfusion was approx 3 years ago. She states she believes she had a reaction about 1 hour following either the transfusion of her blood or her iron. She can't recall. This was actually in 2018- appears this was related to the iron and was reviewed with hematology at that time. Appears she likey got iron sucrose infusion as this is now on her allergy list as allergy to iron and sucrose. COVID test on admission is: NEGATIVE Allergies Allergy/AdvReac Type Severity Reaction Status Date / Time benzyl alcohol Allergy Severe SEE BELOW Verified 08/10/21 14:12 sucrose Allergy Severe SEE BELOW Verified 08/10/21 14:12 niacin Allergy Intermediate lips and Verified 08/10/21 14:12 tongue swell iron AdvReac Severe SEE BELOW Verified 08/10/21 14:12 Home Medications Medication Instructions Recorded Confirmed Type Oxygen Home #2 L 06/02/19 10/29/21 Rx ferrous sulfate 325 mg (65 mg 325 mg PO DAILY 06/02/19 10/29/21 History iron) tablet (FeroSul) hydrocodone 7.5 mg-acetaminophen 15 ml PO Q8H PRN Pain 06/02/19 10/29/21 History 325 mg/15 mL oral solution metoprolol tartrate 50 mg tablet 50 mg PO BID 06/02/19 10/29/21 History naloxegol 25 mg tablet (Movantik) 25 mg PO QAM 06/02/19 10/29/21 History nitroglycerin 0.4 mg sublingual 0.4 mg sublingual Q5M PRN Chest 07/20/20 10/29/21 History tablet Pain Portable Oxygen #1 ea 08/10/21 10/29/21 Rx albuterol sulfate 90 mcg/actuation 1 inh inhalation QID PRN shortness 08/10/21 10/29/21 Rx aerosol inhaler (Proventil HFA) of breath or wheezing #8.5 grams coenzyme Q10 60 mg tablet 60 mg PO DAILY 08/10/21 10/29/21 History docusate sodium 100 mg tablet 100 mg PO DAILY 08/10/21 10/29/21 History furosemide 20 mg tablet 40 mg PO DAILY PRN Edema 08/10/21 10/29/21 History multivitamin 1 tab PO DAILY 08/10/21 10/29/21 History red yeast rice 600 mg capsule 600 mg PO DAILY 08/10/21 10/29/21 History acetaminophen 500 mg tablet 500 mg PO QID PRN Pain 10/29/21 10/29/21 History Past Med/Surg History Medical History Cerebral meningioma Chronic pain syndrome Depression Diverticulitis Fibromyalgia Hemangioma of spleen Hiatal hernia HTN (hypertension) Hyperlipidemia, mixed Memory loss Multiple pulmonary nodules Multiple thyroid nodules Surgical History History of hysterectomy Loss of teeth due to extraction Family History Father Colon cancer Esophageal cancer Prostate cancer Mother Abdominal aortic aneurysm Hypercholesterolemia Daughter Fibromyalgia Sister Hypertension Daughter Thyroid cancer Systemic lupus Social History Smoking Status: Never smoker Age Started Using Tobacco: 19; Age Quit Using Tobacco: 58; packs per day: 1; Hx Substance Use: Yes Preferred Language: Jordanian marital status: Single current occupational status: disabled Feels Safe at Home: Yes Review of Systems Review of Systems: REVIEW OF SYSTEMS: Constitutional: (+) fatigue, No fever, sweats or chills Eyes: No diplopia, no worsening or blurred vision ENT: normal hearing, no trouble swallowing Respiratory: (+) dyspnea, No cough, sputum, dyspnea at rest or on exertion Cardiovascular: No chest pain, tightness or palpitations Abdomen: No pain, nausea, vomiting, diarrhea or constipation Musculoskeletal: (+) leg cramping pain with activity, No joint pain, calf pain, swelling Neurologic: (+) tremor, No weakness, numbness/tingling, or balance problems Psychiatric: (+) depression, opioid dependance, No anxiety or depression Skin: No rash or itch Physical Exam Physical Exam: PHYSICAL EXAM: General: awake, alert, no apparent distress Head: Normocephalic, atraumatic ENT: PERRLA, EOMI, pale conjunctivae, pale gums, no pharyngeal exudate, mucous membranes moist Neuro: AAO x 3, speech clear and appropriate, strength intact bilaterally 5/5, sensation intact and equal all extremities and dermatomes, no pronator drift, Chest: equal rise and fall of the chest, no accessory muscle use, no heaves or thrills, Clear to auscultation, on room air, Cardiac: Regular rate and rhythm, telemetry reviewed, skin warm dry, cap refill <3 seconds, peripheral pulses +2 no JVD, no murmur, no edema GI: NABS x 4 quadrants, soft, nontender to palpation, no rebound, guarding or tenderness : Spontaneously voiding, no pain, no CVA tenderness, Extremities: Normal inspection, no peripheral edema or erythema, calfs nontender to palpation Psych: Normal mood and affect Skin: pale, no rash or erythema Results & Data Results & Data ([facility]) Vital Signs (Past 12 Hours) Vital Signs Temp Pulse Resp BP Pulse Ox O2 Del Method O2 Flow Rate 10/29/21 12:04 2 L Room Air 100 10/29/21 12:04 65 18 100 Nasal Cannula 2 10/29/21 11:20 36.9 C 76 18 191/71 H 100 Room Air Laboratory Results Abnormal lab results 10/29/21 10/29/21 10/29/21 Range/Units 12:01 12:01 12:01 RBC 2.68 L (3.93-5.22) M/uL Hgb 5.1 L* (12.0-16.0) g/dl Hct 18.7 L* (34.1-44.9) % MCV 69.8 L (80.0-100.0) fL MCH 19.0 L (25.0-34.0) pg MCHC 27.3 L (32.0-36.0) g/dL RDW Coeff of Terrance 18.0 H (11.5-14.5) % Plt Count 466 H (130-400) K/uL Reticulocyte % (Auto) (0.5-2.0) % Absolute Nucleated RBC 0.02 H (0-0) K/uL Immature Retic Fraction (3.0-15.9) % Retic Hgb Content (28.2-36.6) pg Chloride 110 H (98-107) mmol/L Glucose 110 H (70-99(Fasting)) mg/dl B-Natriuretic Peptide 176 H (0-100) pg/ml Crossmatch 10/29/21 10/29/21 Range/Units 12:01 13:22 RBC 2.69 L (3.93-5.22) M/uL Hgb 5.2 L* (12.0-16.0) g/dl Hct 18.5 L* (34.1-44.9) % MCV 68.8 L (80.0-100.0) fL MCH 19.3 L (25.0-34.0) pg MCHC 28.1 L (32.0-36.0) g/dL RDW Coeff of Terrance 17.9 H (11.5-14.5) % Plt Count 449 H (130-400) K/uL Reticulocyte % (Auto) 2.7 H (0.5-2.0) % Absolute Nucleated RBC (0-0) K/uL Immature Retic Fraction 40.0 H (3.0-15.9) % Retic Hgb Content 15.4 L (28.2-36.6) pg Chloride (98-107) mmol/L Glucose (70-99(Fasting)) mg/dl B-Natriuretic Peptide (0-100) pg/ml Crossmatch See Detail Diagnostic Findings Chest X-Ray 10/29/21 11:46 XR chest 1V portable HISTORY: 66 years-old Female Chest Pain . Acute chest pain with shortness of breath COMPARISON: Chest CT 10/18/2021 TECHNIQUE: Portable AP view of the chest FINDINGS: Cardiomediastinal and hilar silhouettes are within normal limits. Moderate sized hiatal hernia. No pneumothorax, pleural effusion, airspace consolidation or overt pulmonary edema. Bones of the chest appear grossly intact. IMPRESSION: 1. No acute process of the chest. 2. Moderate hiatal hernia. ACT 112: Negative or not required by law. The above report was generated using voice recognition software. It may contain grammatical, syntax or spelling errors. Electronically signed by: Yoel Bautista M.D. 10/29/2021 12:[address] 10/29/21 11:46 CT head/brain wo con CLINICAL HISTORY: 66 years-old Female with weakness. Acute weakness TECHNIQUE: Multiple axial CT images of the head were obtained without contrast. A dose lowering technique was utilized adhering to the principles of ALARA. CT DOSE: 614.27 mGy.cm COMPARISON: None. FINDINGS: No acute intracranial hemorrhage, midline shift, intracranial mass, hydrocephalus, territorial ischemia or abnormal extra-axial collection. Minimal involutional changes. Senescent calcifications of the basal ganglia. The calvarium is intact. The paranasal sinuses, mastoid air cells, and middle ear cavities are clear. IMPRESSION: No acute intracranial abnormality. ACT 112: Negative or not required by law. The above report was generated using voice recognition software. It may contain grammatical, syntax or spelling errors. Electronically signed by: Yoel Bautista M.D. 10/29/2021 12:18 PM Medications Administered Home Medications Oxygen Home #2 L 06/02/19 [Rx Confirmed 08/23/20] ferrous sulfate 325 mg (65 mg iron) tablet (FeroSul) 325 mg PO DAILY 06/02/19 [History Confirmed 08/10/21] hydrocodone 7.5 mg-acetaminophen 325 mg/15 mL oral solution 15 ml PO Q8H PRN 06/02/19 [History Confirmed 08/10/21] metoprolol tartrate 50 mg tablet 50 mg PO BID 06/02/19 [History Confirmed 08/10/21] naloxegol 25 mg tablet (Movantik) 25 mg PO QAM 06/02/19 [History Confirmed 08/10/21] nitroglycerin 0.4 mg sublingual tablet 0.4 mg sublingual Q5M PRN 07/20/20 [History Confirmed 08/10/21] Portable Oxygen #1 ea 08/10/21 [Rx Confirmed 08/10/21] albuterol sulfate 90 mcg/actuation aerosol inhaler (Proventil HFA) 1 inh inhalation QID PRN shortness of breath or wheezing #8.5 grams 08/10/21 [Rx Confirmed 08/10/21] coenzyme Q10 60 mg tablet 60 mg PO DAILY 08/10/21 [History Confirmed 08/10/21] docusate sodium 100 mg tablet 100 mg PO DAILY 08/10/21 [History Confirmed 08/10/21] folic acid 400 mcg tablet 0.4 mg PO DAILY 08/10/21 [History Confirmed 08/10/21] furosemide 20 mg tablet 40 mg PO DAILY PRN 08/10/21 [History Confirmed 08/10/21] multivitamin 1 tab PO DAILY 08/10/21 [History Confirmed 08/10/21] red yeast rice 600 mg capsule 600 mg PO DAILY 08/10/21 [History Confirmed 08/10/21] Active Medications Sodium Chloride (Nss) 250 mls @ 15 mls/hr IV .[id number] PRN PRN Reason: For Transfusion Stop: 10/29/21 22:36 ECG Additional Comments: Normal sinus rhythm Cannot rule out Anterior infarct (cited on or before 14-JUL-2016) Abnormal ECG When compared with ECG of 14-JUL-2016 06:27, No significant change was found Code Status & VTE Plan Code Status CODE: DNR/DNI VTE: SCDS, ambulation VTE Prophylaxis Plan VTE Prophylaxis will be ordered: Yes Supervising Physician Co-Signing Physician Notes I supervised AMILCAR Dey on this admission. I interviewed and examined the patient independently of him. The plan is as written in his note except for any following changes/exceptions: None 66yo F w/ hx of iron deficiency anemia who presents with iron deficiency anemia. Has not been taking her iron. Presents with significant anemia. Will give 2 units PRBCs and monitor. PG Care Time/CCT Total # of Minutes Spent Total Time Spent with Patient: Total time spent is greater than 50% in coordination of care (as documented) at patient's floor/unit and/or counseling patient: Coding Level of Care Code 62614 Initial Inpt Care Lvl 3 Diagnoses Anemia D64.9 Hiatal hernia K44.9 Fibromyalgia M79.7 HTN (hypertension) I10 Multiple thyroid nodules E04.2 COPD (chronic obstructive pulmonary disease) J44.9 History of gastroesophageal reflux (GERD) Z87.19 Meningioma D32.9 Opioid dependence F11.20
[2021-10-29 14:00] LABS: Hematocrit (blood only) 18.5 % (34.1-44.9); Hemoglobin 5.2 g/dl (12.0-16.0); Mean Corpuscular Hemoglobin 19.3 pg (25.0-34.0); Mean Corpuscular Hgb Conc 28.1 g/dL (32.0-36.0); Mean Corpuscular Volume 68.8 fL (80.0-100.0); Mean Platelet Volume 9.9 fL (9.4-12.3); Platelet Count 449 K/uL (130-400); RDW Coefficient of Variation 17.9 % (11.5-14.5); RDW Standard Deviation 44.3 fL (36.4-46.3); Red Blood Count 2.69 M/uL (3.93-5.22); White Blood Count 6.47 K/ul (4.8-10.8)
[2021-10-29 14:01] LABS: Basophils # (auto) 0.06 K/uL (0-0.2); Basophils % (auto) 0.9 %; Eosinophils % (auto) 1.5 %; Hypochromasia Present; Immature Granulocytes # (auto) 0.02 K/uL (0.00-0.02); Immature Granulocytes % (auto) 0.3 %; Lymphocytes % (auto) 24.7 %; Microcytosis Present; Monocytes # (auto) 0.45 K/uL (0.24-0.82); Neutrophils # (auto) 4.24 K/uL (1.4-6.5); Neutrophils % (auto) 65.6 %; Polychromasia 1+; Reticulated Hemoglobin 15.4 pg (28.2-36.6); Reticulocyte % 2.7 % (0.5-2.0); Reticulocytes # 0.07 10^6/uL (0.02-0.10)
[2021-10-29 14:06] LABS: Albumin Level 4.3 gm/dl (3.4-5.0); Bilirubin,Total 0.3 mg/dl (0.2-1.0); Total Protein 6.6 gm/dl (6.0-8.3)
[2021-10-29 14:13] LABS: Ferritin 37.4 ng/ml (8-388)
[2021-10-29 14:20] LABS: Folate (Folic Acid) 18.58 ng/ml (>5.38)
[2021-10-29] MEDS ORDERED: ONDANSETRON INJ 2 MG/ML 2 ML VIAL IV PRN (15:55)
[2021-10-29] MEDS ORDERED: ACETAMINOPHEN 325 MG TAB PO PRN (15:55)
[2021-10-29] MEDS ORDERED: ALBUTEROL HFA 8 GM INHALER INH PRN (15:55)
[2021-10-29] MEDS: PANTOprazole 40 MG TAB PO SCH (16:40)
[2021-10-29] MEDS: METOPROLOL TARTRATE 50 MG TAB PO SCH (16:42)
[2021-10-29] MEDS: HYDROCODONE/ACETAMINOPHEN 7.5/325MG TAB PO PRN (18:01)
[2021-10-29] MEDS ORDERED: hydrALAZINE 10 MG TAB PO PRN (19:36)
[2021-10-30 05:42] LABS: Hemoglobin 7.4 g/dl (12.0-16.0); Mean Corpuscular Hemoglobin 22.9 pg (25.0-34.0); Mean Corpuscular Hgb Conc 30.8 g/dL (32.0-36.0); Mean Corpuscular Volume 74.3 fL (80.0-100.0); Mean Platelet Volume 9.6 fL (9.4-12.3); Nucleated RBC # (auto) 0.03 K/uL (0-0); Nucleated RBC % (auto) 0.5 %; Platelet Count 341 K/uL (130-400); RDW Coefficient of Variation 19.5 % (11.5-14.5); RDW Standard Deviation 52.4 fL (36.4-46.3); Red Blood Count 3.23 M/uL (3.93-5.22); White Blood Count 5.49 K/ul (4.8-10.8)
[2021-10-30 05:55] LABS: BUN Creatinine Ratio 14.8 (10-20); Calcium 8.7 mg/dl (8.5-10.1); Creatinine Clr Calc Pharmacy 83.7 ml/min; Est GFR (African American) 110.3 ml/min; Est GFR (Non-African American) 95.1 ml/min; Potassium 4.2 mmol/L (3.5-5.1)
[2021-10-30 05:59] LABS: Basophils # (auto) 0.05 K/uL (0-0.2); Basophils % (auto) 0.9 %; Eosinophils # (auto) 0.13 K/uL (0-0.50); Eosinophils % (auto) 2.4 %; Hypochromasia Present; Immature Granulocytes # (auto) 0.04 K/uL (0.00-0.02); Immature Granulocytes % (auto) 0.7 %; Lymphocytes # (auto) 1.49 K/uL (1.2-3.4); Lymphocytes % (auto) 27.1 %; Monocytes # (auto) 0.57 K/uL (0.24-0.82); Monocytes % (auto) 10.4 %; Neutrophils # (auto) 3.21 K/uL (1.4-6.5); Neutrophils % (auto) 58.5 %; Polychromasia 1+
[2021-10-30] MEDS: HYDROCODONE/ACETAMINOPHEN 7.5/325MG TAB PO PRN (07:38)
[2021-10-30] MEDS: PANTOprazole 40 MG TAB PO SCH (07:52)
[2021-10-30] MEDS ORDERED: FUROSEMIDE 40 MG/4 ML VIAL IV ONE ×2 (07:53→10:15)
[2021-10-30] MEDS: METOPROLOL TARTRATE 50 MG TAB PO SCH (07:53)
[2021-10-30] MEDS ORDERED: SODIUM CHLORIDE 0.9% 250 ML IV PRN (07:53)
--- NOTE | 2021-10-30 08:02 | Hospitalist Progress Note ---
Date of Service October 30, 2021 Assessment & Plan (1) Anemia: Plan: Patient with history of iron deficiency anemia- reports she gets her labs checked frequently but non-compliance with oral iron due to GI side effects Hgb 5.1 Iron panel w/ iron low at 16, ferritin 37.4, unsat elevated 502 B12 low at 176 -- was going to order IM but allergy to benzyl alcohol and given prior Rx to IV iron, started 1000mcg PO daily and to continue. Folate wnl 18.58 Retic count elevated 2.7 s/p 2 u prbc with hgb 7.4 on am labs. 1u PRBC ordered for this morning BNP elevated to 176, will order 20mg IV Lasix with additional unit of blood as well - Microcytic hypochromic - She is non compliant with her iron sulfate- consider trial of gluconate orally - Iron Fe, ferritin, TIBC, LDH, B12, pending - repeat CBC remains with HGB 5.2- platelet count normal, WBC count normal - Transfuse 2 units PRBC follow in AM (2) Hiatal hernia: Plan: Chronic with GERD - will add PPI - (3) Fibromyalgia: Plan: Chronic pain syndrome - continue loratab 7.5 prn - she does not use her naloxegel as she gets relief with her stool softners - but always has on hand incase she needs it (4) HTN (hypertension): Plan: Recently changed from Metoprolol Succ to Tartrate secondary to fatigue - 50mg PO BID - Lasix PRN at home, scheduled for the morning following her transfusions (5) Multiple thyroid nodules: Plan: follows with PCP no recent imaging noted in our system (6) COPD (chronic obstructive pulmonary disease): Plan: PFTS 10/19 - Remains on albuterol - has not felt benefit from her previous inhalers had a trial of Stiolto- caused nosebleeds so it was terminated - pulmonary nodules 4mm follows with pulmonary for CT annually (7) History of gastroesophageal reflux (GERD): Plan: NOt on PPI on home medicaitons - will initiate (8) Meningioma: Plan: Stable follows with annual imaging [place] [facility] [place] (9) Opioid dependence: Plan: As above continue home loratab Admission and Anticipated Discharge Date Admission Date: October 29, 2021 Results & Data Results & Data ([facility]) Vital Signs (Past 12 Hours) Vital Signs Temp Pulse Pulse Resp BP BP Pulse Ox 07/31/22 07:16 36.8 C 71 18 177/77 H 98 10/29/21 21:20 10/29/21 23:40 36.6 C 61 16 175/73 H 97 10/29/21 22:40 36.8 C 73 16 187/65 H 100 10/29/21 21:40 37 C 68 16 153/74 H 98 10/29/21 21:10 36.8 C 60 16 181/74 H 100 10/29/21 20:55 37 C 64 18 204/78 H 100 10/29/21 20:55 36.7 C 67 16 154/77 H 100 10/29/21 20:32 36.9 C 65 16 166/76 H 100 O2 Del Method O2 Flow Rate 10/30/21 07:16 Room Air 10/29/21 21:20 Room Air, Nasal Cannula 1 10/29/21 23:40 10/29/21 22:40 1 10/29/21 21:40 10/29/21 21:10 10/29/21 20:55 10/29/21 20:55 0 10/29/21 20:32 0 Laboratory Results 10/30/21 10/30/21 10/29/21 Range/Units 04:57 04:57 13:26 WBC 5.49 (4.8-10.8) K/ul RBC 3.23 L (3.93-5.22) M/uL Hgb 7.4 L (12.0-16.0) g/dl Hct 24.0 L (34.1-44.9) % MCV 74.3 L D (80.0-100.0) fL MCH 22.9 L (25.0-34.0) pg MCHC 30.8 L (32.0-36.0) g/dL RDW Std Deviation 52.4 H (36.4-46.3) fL RDW Coeff of Terrance 19.5 H (11.5-14.5) % Plt Count 341 (130-400) K/uL MPV 9.6 (9.4-12.3) fL Immature Gran % (Auto) 0.7 % Neut % (Auto) 58.5 % Lymph % (Auto) 27.1 % Karnes % (Auto) 10.4 % Eos % (Auto) 2.4 % Baso % (Auto) 0.9 % Reticulocyte % (Auto) (0.5-2.0) % Neut # (Auto) 3.21 (1.4-6.5) K/uL Lymph # (Auto) 1.49 (1.2-3.4) K/uL Karnes # (Auto) 0.57 (0.24-0.82) K/uL Eos # (Auto) 0.13 (0-0.50) K/uL Baso # (Auto) 0.05 (0-0.2) K/uL Reticulocyte # (0.02-0.10) 10^6/uL Immature Gran # (Auto) 0.04 H (0.00-0.02) K/uL Absolute Nucleated RBC 0.03 H (0-0) K/uL Nucleated RBC % (auto) 0.5 % Polychromasia 1+ Hypochromasia Present Microcytosis Immature Retic Fraction (3.0-15.9) % Retic Hgb Content (28.2-36.6) pg PT (9.0-12.0) Seconds INR (0.9-1.1) APTT (21.0-31.0) Seconds PTT Ratio Sodium 142 (136-145) mmol/L Potassium 4.2 (3.5-5.1) mmol/L Chloride 112 H (98-107) mmol/L Carbon Dioxide 23 (21-32) mmol/L Anion Gap 7 (3-11) BUN 9 (6-23) mg/dl Creatinine 0.61 (0.6-1.2) mg/dl Est Cr Clr Drug Dosing 83.7 ml/min Est GFR ( Amer) 110.3 ml/min Est GFR (Non-Af Amer) 95.1 ml/min BUN/Creatinine Ratio 14.8 (10-20) Glucose 106 H (70-99(Fasting)) mg/dl Calcium 8.7 (8.5-10.1) mg/dl Magnesium (1.7-2.4) mg/dl Iron (35-150) mcg/dl Unsaturated IBC (155-355) mcg/dl Transferrin (200-360) mg/dl Ferritin (8-388) ng/ml Total Bilirubin (0.2-1.0) mg/dl Direct Bilirubin (0-0.2) mg/dl AST (13-39) U/L ALT (7-52) U/L Alkaline Phosphatase (34-104) U/L Lactate Dehydrogenase (86-244) U/L Troponin I High Sens (0-14) pg/ml B-Natriuretic Peptide (0-100) pg/ml Total Protein (6.0-8.3) gm/dl Albumin (3.4-5.0) gm/dl Lipase (11-82) U/L Vitamin B12 (180-914) pg/ml Folate (>5.38) ng/ml SARS-CoV-2, RNA, NAAT (NEGATIVE) Blood Type Blood Type Recheck O Negative Antibody Screen Crossmatch 10/29/21 10/29/21 10/29/21 Range/Units 13:22 13:22 13:22 WBC (4.8-10.8) K/ul RBC (3.93-5.22) M/uL Hgb (12.0-16.0) g/dl Hct (34.1-44.9) % MCV (80.0-100.0) fL MCH (25.0-34.0) pg MCHC (32.0-36.0) g/dL RDW Std Deviation (36.4-46.3) fL RDW Coeff of Terrance (11.5-14.5) % Plt Count (130-400) K/uL MPV (9.4-12.3) fL Immature Gran % (Auto) % Neut % (Auto) % Lymph % (Auto) % Karnes % (Auto) % Eos % (Auto) % Baso % (Auto) % Reticulocyte % (Auto) (0.5-2.0) % Neut # (Auto) (1.4-6.5) K/uL Lymph # (Auto) (1.2-3.4) K/uL Karnes # (Auto) (0.24-0.82) K/uL Eos # (Auto) (0-0.50) K/uL Baso # (Auto) (0-0.2) K/uL Reticulocyte # (0.02-0.10) 10^6/uL Immature Gran # (Auto) (0.00-0.02) K/uL Absolute Nucleated RBC (0-0) K/uL Nucleated RBC % (auto) % Polychromasia Hypochromasia Microcytosis Immature Retic Fraction (3.0-15.9) % Retic Hgb Content (28.2-36.6) pg PT (9.0-12.0) Seconds INR (0.9-1.1) APTT (21.0-31.0) Seconds PTT Ratio Sodium (136-145) mmol/L Potassium (3.5-5.1) mmol/L Chloride (98-107) mmol/L Carbon Dioxide (21-32) mmol/L Anion Gap (3-11) BUN (6-23) mg/dl Creatinine (0.6-1.2) mg/dl Est Cr Clr Drug Dosing ml/min Est GFR ( Amer) ml/min Est GFR (Non-Af Amer) ml/min BUN/Creatinine Ratio (10-20) Glucose (70-99(Fasting)) mg/dl Calcium (8.5-10.1) mg/dl Magnesium (1.7-2.4) mg/dl Iron 16 L (35-150) mcg/dl Unsaturated IBC 502 H (155-355) mcg/dl Transferrin 372 H (200-360) mg/dl Ferritin 37.4 (8-388) ng/ml Total Bilirubin 0.3 (0.2-1.0) mg/dl Direct Bilirubin 0.0 (0-0.2) mg/dl AST 11 L (13-39) U/L ALT 7 (7-52) U/L Alkaline Phosphatase 67 (34-104) U/L Lactate Dehydrogenase 151 (86-244) U/L Troponin I High Sens (0-14) pg/ml B-Natriuretic Peptide (0-100) pg/ml Total Protein 6.6 (6.0-8.3) gm/dl Albumin 4.3 (3.4-5.0) gm/dl Lipase (11-82) U/L Vitamin B12 176 L (180-914) pg/ml Folate 18.58 (>5.38) ng/ml SARS-CoV-2, RNA, NAAT (NEGATIVE) Blood Type Blood Type Recheck Antibody Screen Crossmatch 10/29/21 10/29/21 10/29/21 Range/Units 13:22 12:40 12:01 WBC 6.47 (4.8-10.8) K/ul RBC 2.69 L (3.93-5.22) M/uL Hgb 5.2 L* (12.0-16.0) g/dl Hct 18.5 L* (34.1-44.9) % MCV 68.8 L (80.0-100.0) fL MCH 19.3 L (25.0-34.0) pg MCHC 28.1 L (32.0-36.0) g/dL RDW Std Deviation 44.3 (36.4-46.3) fL RDW Coeff of Terrance 17.9 H (11.5-14.5) % Plt Count 449 H (130-400) K/uL MPV 9.9 (9.4-12.3) fL Immature Gran % (Auto) 0.3 % Neut % (Auto) 65.6 % Lymph % (Auto) 24.7 % Karnes % (Auto) 7.0 % Eos % (Auto) 1.5 % Baso % (Auto) 0.9 % Reticulocyte % (Auto) 2.7 H (0.5-2.0) % Neut # (Auto) 4.24 (1.4-6.5) K/uL Lymph # (Auto) 1.60 (1.2-3.4) K/uL Karnes # (Auto) 0.45 (0.24-0.82) K/uL Eos # (Auto) 0.10 (0-0.50) K/uL Baso # (Auto) 0.06 (0-0.2) K/uL Reticulocyte # 0.07 (0.02-0.10) 10^6/uL Immature Gran # (Auto) 0.02 (0.00-0.02) K/uL Absolute Nucleated RBC (0-0) K/uL Nucleated RBC % (auto) % Polychromasia 1+ Hypochromasia Present Microcytosis Present Immature Retic Fraction 40.0 H (3.0-15.9) % Retic Hgb Content 15.4 L (28.2-36.6) pg PT (9.0-12.0) Seconds INR (0.9-1.1) APTT (21.0-31.0) Seconds PTT Ratio Sodium (136-145) mmol/L Potassium (3.5-5.1) mmol/L Chloride (98-107) mmol/L Carbon Dioxide (21-32) mmol/L Anion Gap (3-11) BUN (6-23) mg/dl Creatinine (0.6-1.2) mg/dl Est Cr Clr Drug Dosing ml/min Est GFR ( Amer) ml/min Est GFR (Non-Af Amer) ml/min BUN/Creatinine Ratio (10-20) Glucose (70-99(Fasting)) mg/dl Calcium (8.5-10.1) mg/dl Magnesium (1.7-2.4) mg/dl Iron (35-150) mcg/dl Unsaturated IBC (155-355) mcg/dl Transferrin (200-360) mg/dl Ferritin (8-388) ng/ml Total Bilirubin (0.2-1.0) mg/dl Direct Bilirubin (0-0.2) mg/dl AST (13-39) U/L ALT (7-52) U/L Alkaline Phosphatase (34-104) U/L Lactate Dehydrogenase (86-244) U/L Troponin I High Sens (0-14) pg/ml B-Natriuretic Peptide (0-100) pg/ml Total Protein (6.0-8.3) gm/dl Albumin (3.4-5.0) gm/dl Lipase (11-82) U/L Vitamin B12 (180-914) pg/ml Folate (>5.38) ng/ml SARS-CoV-2, RNA, NAAT NEGATIVE (NEGATIVE) Blood Type O Negative Blood Type Recheck Antibody Screen NEGATIVE Crossmatch See Detail 10/29/21 10/29/21 10/29/21 Range/Units 12:01 12:01 12:01 WBC (4.8-10.8) K/ul RBC (3.93-5.22) M/uL Hgb (12.0-16.0) g/dl Hct (34.1-44.9) % MCV (80.0-100.0) fL MCH (25.0-34.0) pg MCHC (32.0-36.0) g/dL RDW Std Deviation (36.4-46.3) fL RDW Coeff of Terrance (11.5-14.5) % Plt Count (130-400) K/uL MPV (9.4-12.3) fL Immature Gran % (Auto) % Neut % (Auto) % Lymph % (Auto) % Karnes % (Auto) % Eos % (Auto) % Baso % (Auto) % Reticulocyte % (Auto) (0.5-2.0) % Neut # (Auto) (1.4-6.5) K/uL Lymph # (Auto) (1.2-3.4) K/uL Karnes # (Auto) (0.24-0.82) K/uL Eos # (Auto) (0-0.50) K/uL Baso # (Auto) (0-0.2) K/uL Reticulocyte # (0.02-0.10) 10^6/uL Immature Gran # (Auto) (0.00-0.02) K/uL Absolute Nucleated RBC (0-0) K/uL Nucleated RBC % (auto) % Polychromasia Hypochromasia Microcytosis Immature Retic Fraction (3.0-15.9) % Retic Hgb Content (28.2-36.6) pg PT 11.5 (9.0-12.0) Seconds INR 1.1 (0.9-1.1) APTT 24.2 (21.0-31.0) Seconds PTT Ratio 0.9 Sodium 140 (136-145) mmol/L Potassium 3.9 (3.5-5.1) mmol/L Chloride 110 H (98-107) mmol/L Carbon Dioxide 21 (21-32) mmol/L Anion Gap 9 (3-11) BUN 7 (6-23) mg/dl Creatinine 0.64 (0.6-1.2) mg/dl Est Cr Clr Drug Dosing 79.8 ml/min Est GFR ( Amer) 108.5 ml/min Est GFR (Non-Af Amer) 93.6 ml/min BUN/Creatinine Ratio 10.9 (10-20) Glucose 110 H (70-99(Fasting)) mg/dl Calcium 9.1 (8.5-10.1) mg/dl Magnesium 2.0 (1.7-2.4) mg/dl Iron (35-150) mcg/dl Unsaturated IBC (155-355) mcg/dl Transferrin (200-360) mg/dl Ferritin (8-388) ng/ml Total Bilirubin (0.2-1.0) mg/dl Direct Bilirubin (0-0.2) mg/dl AST (13-39) U/L ALT (7-52) U/L Alkaline Phosphatase (34-104) U/L Lactate Dehydrogenase (86-244) U/L Troponin I High Sens 3.4 (0-14) pg/ml B-Natriuretic Peptide 176 H (0-100) pg/ml Total Protein (6.0-8.3) gm/dl Albumin (3.4-5.0) gm/dl Lipase 25 (11-82) U/L Vitamin B12 (180-914) pg/ml Folate (>5.38) ng/ml SARS-CoV-2, RNA, NAAT (NEGATIVE) Blood Type Blood Type Recheck Antibody Screen Crossmatch 10/29/21 Range/Units 12:01 WBC 7.06 (4.8-10.8) K/ul RBC 2.68 L (3.93-5.22) M/uL Hgb 5.1 L* (12.0-16.0) g/dl Hct 18.7 L* (34.1-44.9) % MCV 69.8 L (80.0-100.0) fL MCH 19.0 L (25.0-34.0) pg MCHC 27.3 L (32.0-36.0) g/dL RDW Std Deviation 45.7 (36.4-46.3) fL RDW Coeff of Terrance 18.0 H (11.5-14.5) % Plt Count 466 H (130-400) K/uL MPV 10.0 (9.4-12.3) fL Immature Gran % (Auto) 0.3 % Neut % (Auto) 65.8 % Lymph % (Auto) 24.5 % Karnes % (Auto) 6.9 % Eos % (Auto) 1.7 % Baso % (Auto) 0.8 % Reticulocyte % (Auto) (0.5-2.0) % Neut # (Auto) 4.64 (1.4-6.5) K/uL Lymph # (Auto) 1.73 (1.2-3.4) K/uL Karnes # (Auto) 0.49 (0.24-0.82) K/uL Eos # (Auto) 0.12 (0-0.50) K/uL Baso # (Auto) 0.06 (0-0.2) K/uL Reticulocyte # (0.02-0.10) 10^6/uL Immature Gran # (Auto) 0.02 (0.00-0.02) K/uL Absolute Nucleated RBC 0.02 H (0-0) K/uL Nucleated RBC % (auto) 0.3 % Polychromasia 1+ Hypochromasia Present Microcytosis Present Immature Retic Fraction (3.0-15.9) % Retic Hgb Content (28.2-36.6) pg PT (9.0-12.0) Seconds INR (0.9-1.1) APTT (21.0-31.0) Seconds PTT Ratio Sodium (136-145) mmol/L Potassium (3.5-5.1) mmol/L Chloride (98-107) mmol/L Carbon Dioxide (21-32) mmol/L Anion Gap (3-11) BUN (6-23) mg/dl Creatinine (0.6-1.2) mg/dl Est Cr Clr Drug Dosing ml/min Est GFR ( Amer) ml/min Est GFR (Non-Af Amer) ml/min BUN/Creatinine Ratio (10-20) Glucose (70-99(Fasting)) mg/dl Calcium (8.5-10.1) mg/dl Magnesium (1.7-2.4) mg/dl Iron (35-150) mcg/dl Unsaturated IBC (155-355) mcg/dl Transferrin (200-360) mg/dl Ferritin (8-388) ng/ml Total Bilirubin (0.2-1.0) mg/dl Direct Bilirubin (0-0.2) mg/dl AST (13-39) U/L ALT (7-52) U/L Alkaline Phosphatase (34-104) U/L Lactate Dehydrogenase (86-244) U/L Troponin I High Sens (0-14) pg/ml B-Natriuretic Peptide (0-100) pg/ml Total Protein (6.0-8.3) gm/dl Albumin (3.4-5.0) gm/dl Lipase (11-82) U/L Vitamin B12 (180-914) pg/ml Folate (>5.38) ng/ml SARS-CoV-2, RNA, NAAT (NEGATIVE) Blood Type Blood Type Recheck Antibody Screen Crossmatch Diagnostic Findings Chest X-Ray 10/29/21 11:46 XR chest 1V portable HISTORY: 66 years-old Female Chest Pain . Acute chest pain with shortness of br eath COMPARISON: Chest CT 10/18/2021 TECHNIQUE: Portable AP view of the chest FINDINGS: Cardiomediastinal and hilar silhouettes are within normal limits. Moderate sized hiatal hernia. No pneumothorax, pleural effusion, airspace consolidation or overt pulmonary edema. Bones of the chest appear grossly intact. IMPRESSION: 1. No acute process of the chest. 2. Moderate hiatal hernia. ACT 112: Negative or not required by law. The above report was generated using voice recognition software. It may contain grammatical, syntax or spelling errors. Electronically signed by: Yoel Bautista M.D. 10/29/2021 12:[address] 10/29/21 11:46 CT head/brain wo con CLINICAL HISTORY: 66 years-old Female with weakness. Acute weakness TECHNIQUE: Multiple axial CT images of the head were obtained without contrast. A dose lowering technique was utilized adhering to the principles of ALARA. CT DOSE: 614.27 mGy.cm COMPARISON: None. FINDINGS: No acute intracranial hemorrhage, midline shift, intracranial mass, hydrocephalus, territorial ischemia or abnormal extra-axial collection. Minimal involutional changes. Senescent calcifications of the basal ganglia. The calvarium is intact. The paranasal sinuses, mastoid air cells, and middle ear cavities are clear. IMPRESSION: No acute intracranial abnormality. ACT 112: Negative or not required by law. The above report was generated using voice recognition software. It may contain grammatical, syntax or spelling errors. Electronically signed by: Yoel Bautista M.D. 10/29/2021 12:18 PM PG Care Time/CCT Total # of Minutes Spent Total Time Spent with Patient: Total time spent is greater than 50% in coordination of care (as documented) at patient's floor/unit and/or counseling patient: Coding Diagnoses Anemia D64.9 Hiatal hernia K44.9 Fibromyalgia M79.7 HTN (hypertension) I10 Multiple thyroid nodules E04.2 COPD (chronic obstructive pulmonary disease) J44.9 History of gastroesophageal reflux (GERD) Z87.19 Meningioma D32.9 Opioid dependence F11.20
[2021-10-30] MEDS ORDERED: DOCUSATE SODIUM 100 MG CAP PO SCH (09:00)
[2021-10-30] MEDS ORDERED: CYANOCOBALAMIN (B-12) 500 MCG TABLET PO SCH (09:00)
[2021-10-30] MEDS ORDERED: FUROSEMIDE 40 MG TAB PO SCH (09:00)
[2021-10-30] MEDS ORDERED: FOLIC ACID 400 MCG TAB PO SCH (09:00)
--- NOTE | 2021-10-30 11:54 | Discharge Summary ---
Date of Service October 30, 2021 Admission HPI Per Admitting Provider 66 YOF with medical history of: COPD, Pulmonary nodules, former smoker, Anemia, Hiatal, chronic fatigue, multinodular goider, chronic pain syndrome, opioid dependance, abdominal hernia, tumor of spleen, depression, HTN, posterior fossa meningioma (serial immaging selected by alpesh). Patient reports that she came to the EMD today for increase in dyspnea and cramping in her legs. She has a history of anemia and is on iron supplementation at home which she takes every 2-3 days because it causes her GI upset and distress. So with her symptoms she came to the EMD to get evaluated. The patient does not remember when her last colonoscopy was but choses to do the Cologuard screening for which she just completed a couple weeks ago. Her last EGD was approx 10 years ago. In the EMD the patient had routine labs performed to include INR, and type and cross. She was ordered 2 units of PRBC by the EMD and requested admission. Will add Iron panel, LDH, B12, and liver function tests. Patient will be admitted for following her symptoms and HGB and iron levels. Patient reports her last history of transfusion was approx 3 years ago. She states she believes she had a reaction about 1 hour following either the transfusion of her blood or her iron. She can't recall. This was actually in 2018- appears this was related to the iron and was reviewed with hematology at that time. Appears she likey got iron sucrose infusion as this is now on her allergy list as allergy to iron and sucrose. COVID test on admission is: NEGATIVE Admission Exam Per Admitting Provider PHYSICAL EXAM: General: awake, alert, no apparent distress Head: Normocephalic, atraumatic ENT: PERRLA, EOMI, pale conjunctivae, pale gums, no pharyngeal exudate, mucous membranes moist Neuro: AAO x 3, speech clear and appropriate, strength intact bilaterally 5/5, sensation intact and equal all extremities and dermatomes, no pronator drift, Chest: equal rise and fall of the chest, no accessory muscle use, no heaves or thrills, Clear to auscultation, on room air, Cardiac: Regular rate and rhythm, telemetry reviewed, skin warm dry, cap refill <3 seconds, peripheral pulses +2 no JVD, no murmur, no edema GI: NABS x 4 quadrants, soft, nontender to palpation, no rebound, guarding or tenderness : Spontaneously voiding, no pain, no CVA tenderness, Extremities: Normal inspection, no peripheral edema or erythema, calfs nontender to palpation Psych: Normal mood and affect Skin: pale, no rash or erythema Principal Diagnosis Anemia Discharge Exam General: WD female, older appearing that stated age, NAD, sitting up in hospital bed, general pallor HEENT; pupils equal, trachea midline without deviation, mm moist, pale gums Resp: good effort, no w/r, bibasilar crackles, 99% on RA, clubbed appearance of nails CV: regular rate/rhythm, no m/r/g, no pitting edema, no calf tenderness, cap refill wnl GI: +BS, soft, nontender : no [place] MSK/Neuro: follows commands, no facial droop/slurred speech, moves all extremities, no focal deficits appreciated Psych: alert, oriented to person/place/time Discharge Data Allergies Allergy/AdvReac Type Severity Reaction Status Date / Time benzyl alcohol Allergy Severe SEE BELOW Verified 08/10/21 14:12 sucrose Allergy Severe SEE BELOW Verified 08/10/21 14:12 niacin Allergy Intermediate lips and Verified 08/10/21 14:12 tongue swell iron AdvReac Severe SEE BELOW Verified 08/10/21 14:12 Consultations 10/29/21 12:47 ED Decision to Admit Stat Ordered Studies Chest X-Ray 10/29/21 11:46 XR chest 1V portable HISTORY: 66 years-old Female Chest Pain . Acute chest pain with shortness of breath COMPARISON: Chest CT 10/18/2021 TECHNIQUE: Portable AP view of the chest FINDINGS: Cardiomediastinal and hilar silhouettes are within normal limits. Moderate sized hiatal hernia. No pneumothorax, pleural effusion, airspace consolidation or overt pulmonary edema. Bones of the chest appear grossly intact. IMPRESSION: 1. No acute process of the chest. 2. Moderate hiatal hernia. ACT 112: Negative or not required by law. The above report was generated using voice recognition software. It may contain grammatical, syntax or spelling errors. Electronically signed by: Yoel Bautista M.D. 10/29/2021 12:[address] 10/29/21 11:46 CT head/brain wo con CLINICAL HISTORY: 66 years-old Female with weakness. Acute weakness TECHNIQUE: Multiple axial CT images of the head were obtained without contrast. A dose lowering technique was utilized adhering to the principles of ALARA. CT DOSE: 614.27 mGy.cm COMPARISON: None. FINDINGS: No acute intracranial hemorrhage, midline shift, intracranial mass, hydrocephalus, territorial ischemia or abnormal extra-axial collection. Minimal involutional changes. Senescent calcifications of the basal ganglia. The calvarium is intact. The paranasal sinuses, mastoid air cells, and middle ear cavities are clear. IMPRESSION: No acute intracranial abnormality. ACT 112: Negative or not required by law. The above report was generated using voice recognition software. It may contain grammatical, syntax or spelling errors. Electronically signed by: Yoel Bautista M.D. 10/29/2021 12:18 PM Hospital Course (1) Anemia: Patient with history of iron deficiency anemia- reported she went to PCP on Sunday for labs and PCP told her when she looked at her that she knew she was anemic but wouldn't have labs until Sunday and to report to ER if any further increased fatigue or shortness of breath To be on daily (recommended BID by provider) iron but intolerance due to GI side effects reported Hgb 5.1 on admit (hgbs in 6s 2016 with prior baseline 12 in 2013 and prior EGD/colonoscopy with [facility] ~10 years ago) Iron panel w/ iron low at 16, ferritin 37.4, unsaturated elevated 502. LDH NOT elevated Retic count elevated 2.7 s/p 2 u prbc on admit and additional 1u PRBC for repeat hgb 7.4--> 9.3 B12 low at 176 (reported balance issues), folate wnl - was going to order IM but allergy to benzyl alcohol and given prior Rx to IV iron, started 1000mcg PO daily and to continue at discharge. Folate wnl 18.58 See below regarding GERD/Hiatal hernia DENIED repeat EGD/C-[facility] (prior ~10 years ago, did Marc), rec f/u GI regardless for symptom management. Dr Lugo on d/c instructions as patient did not want to go back to [facility] Hopefully improved control w/ PPI/upper abd discomfort reported with PO iron improved with PPI and encouraged BID dosing if able to tolerate. Otherwise can consider PCP arranging IV iron transfusions. Noted reaction in past with sucrose, can consider alternative with Iron Dextran/Ferric gluconate or other Of note, concerns for underlying malignancy (lung vs other, denied hx colon ca) however patient voiced even if she were to get a CA diagnosis that she would not want treatment for this (2) Hiatal hernia: Chronic with GERD. Of note, patient with LARGE hiatal hernia (mod on CXR, LARGE unchanged on CT 10/18/21), previously on PPI but insurance stopped covering and had been using OTC ranitidine or similar at the [employer] store since that time -- > Discussed suspect could have underlying David ulcers. -- > Placed on Protonix daily while inpatient, --> checked with insurance and sent for DEXILANT 60mg DAILY and can f/u outpatient, consider Carafate if needed. Previously recommended surgical correction for large hernia, however patient declined this (3) Fibromyalgia: Chronic pain syndrome, continued home loratab 7.5mg prn - she does not use her naloxegel as she gets relief with her stool softners, but always has on hand in case she needs it consider cymbalta in f/u outpatient (4) HTN (hypertension): Recently changed from Metoprolol Succ to Tartrate secondary to fatigue by PCP and remains on tartrate 50mg BID Lasix prn as needed for edema but without CHF diagnosis reported although BNP slightly elevated on admit BNP elevated to 176, ordered additional 20mg IV Lasix in addition to the 40mg PO this morning given 3 units of blood --> No prior hx CHF Recommend following up with PCP regarding possibly switching back as anemia improved as likely cause of her fatigue (5) Multiple thyroid nodules: follows with PCP no recent imaging noted in our system (6) COPD (chronic obstructive pulmonary disease): PFTS 10/19 - Remains on albuterol - has not felt benefit from her previous inhalers had a trial of Stiolto- caused nosebleeds so it was terminated - pulmonary nodules 4mm follows with pulmonary for CT annually 2L w/ ambulation in past, suspect anemia contributing to hypoxia, recently seen by Dr Muñoz and rec'd routine f/u given multiple scattered micronodules on recent CT screening study. breathing stable on room air 99% (7) History of gastroesophageal reflux (GERD): As above, dexilant at d/c recommended given large hiatal hernia (8) Meningioma: Stable follows with annual imaging at [facility] [place] reports this occured after dentist overdosed her with ketamine? outpt f/u (9) Opioid dependence: As above continue home loratab (10) B12 deficiency: reported balance issues at baseline, felt related to her meningioma? B12 checked given anemia and was low at 176. 1000mcg daily and sent rx at discharge Total Time Total Time Spent Total Time Spent (In Minutes): 60 Discharge Plan Discharge Items Patient Disposition: Home - Self-Care Reason For Visit: DYSPNEA,LEG PAIN,ANEMIA Discharge Diagnosis: Anemia, Shortness of breath Goals: You have been hospitalized for an acute medical problem. During your stay at [facility], we have made an effort to correct the problem that brought you to the hospital while keeping you as comfortable as possible. Medications were used to bring your condition under control and your discharge instructions will include directions for any medications you should take after leaving the hospital. Please make sure you see your Primary Care Provider as part of your follow up plan. Activity: Resume your previous activity Non-emergency contact: Primary Care Provider and Champagne Maker Call non-emergency contact if: you have any medication questions, your symptoms worsen, your pain is not controlled and you have a fever Follow-up/Referrals: Evelio Lugo DO [Physician] - (PATIENT TO CALL DR LUGO FOR F/U COLONOSCOPY/EGD.) Crys Lay CRNP [Primary Care Provider] - Lisa Horn MD [Physician] - Diet: Heart Healthy Addtl Attending Provider Instructions: You have been hospitalized for shortness of breath and anemia. Your iron levels were low and your hemoglobin was in the 5s. We gave you three units of blood with improvement in symptoms and labs. We also checked a B12 level which was low and can contribute to low blood counts and balance issues. You have been started and will continue on daily supplementation. As we discussed, given the size of your hiatal hernia, it is very possible you have underlying David ulcers or something similar, however have denied blood in your stool. For this reason, we have sent DEXLANSOPRAZOLE 60mg PO daily, If continued issues, PCP can consider adding Carafate as needed for GI symptoms. Hopefully this decreases some of the GI side effects and you can resume your oral iron supplementation given low levels on labs. You can also discuss trying different form of Iron in the IV as there are multiple formulations and they can be arranged with same day surgery as an outpatient. You can have follow up with Dr Lugo as an outpatient for follow up and consideration for EGD/colonoscopy if you change your mind, or for further medication management. Please follow up with your PCP in the next 7-10 days to monitor your progress after discharge. Please return to the ER with any increased shortness of breath, chest pain, abdominal pain, or for any symptoms concerning for you. Take care! Pending Studies at Discharge: No Stand-Alone Forms: My [facility] Medications and DC Order Prescriptions: New cyanocobalamin (vitamin B-12) 1,000 mcg capsule 1,000 mcg PO DAILY Qty: 30 0RF dexlansoprazole 60 mg capsule,biphase delayed releas 60 mg PO DAILY 56 Days Qty: 56 0RF Continued nitroglycerin 0.4 mg tablet, sublingual 0.4 mg sublingual Q5M PRN (Reason: Chest Pain) Rx Instructions: do not exceed 3 doses per episode metoprolol tartrate 50 mg tablet 50 mg PO BID ferrous sulfate [FeroSul] 325 mg (65 mg iron) tablet 325 mg PO DAILY hydrocodone-acetaminophen 7.5-325 mg/15 mL solution 15 ml PO Q8H PRN (Reason: Pain) Movantik 25 mg tablet 25 mg PO QAM (DME) Oxygen Home Liters Per Minute See Rx Instructions .ROUTE .MEDSUPPLY Qty: 2 0RF Rx Instructions: Home O2: 2LPM via NC with exertion. Humidifcation, tubing, supplies. furosemide 20 mg tablet 40 mg PO DAILY PRN (Reason: Edema) docusate sodium 100 mg tablet 100 mg PO DAILY red yeast rice 600 mg capsule 600 mg PO DAILY Rx Instructions: give with meal/snack coenzyme Q10 60 mg tablet 60 mg PO DAILY multivitamin Tablet 1 tab PO DAILY albuterol sulfate [Proventil HFA] 90 mcg/actuation HFA aerosol inhaler 1 inh inhalation QID PRN (Reason: shortness of breath or wheezing) Qty: 8.5 4RF (DME) Portable Oxygen Misc See Rx Instructions .MEDSUPPLY Qty: 1 0RF Rx Instructions: Oxygen 2 liters continuous via nasal cannula on exertion with portable concentrator. KAT 99 acetaminophen 500 mg Tablet 500 mg PO QID PRN (Reason: Pain) Discharge Orders: Discharge Order (Routine); Ordered 10/30/21 Ordered By: Valeria Pham Admission Data Admit Date/Time: 10/29/21 13:29 Attending Provider: Maria Elena Almonte Admit Provider: Jeremy Lee Primary Care Provider: Crys Lay Other Providers: Jeremy Lee Supervising Physician Co-Signing Physician Notes PA Supervision Note: I personally saw and examined the patient. I verified all gunter points and agree with DOMI Pham with the following exceptions and/or additions: S-Pt feeling much better. Transfused, no obvious bleeding. Ready to go home O- Vitals reviewed Gen: [AAOx3, NAD] HEENT: [anicteric sclerae, EOMI] CV: [RRR no mgr nl S1S2] Pulm: [CTAB no wcr] Abd: [+BS soft NT ND no masses or hernias] Ext: [no edema] Skin: [no rashes, warm/dry] Neuro: [full strength throughout] A/P-66 yo female with severe symptomatic anemia, now s/p PRBC transfusion, much improved needs close outpt f/u and GI evaluation Consider IV iron as outpt as po iron makes her stomach upset Coding Level of Care Code D/C DAY MANAGEMENT >30 MINS Diagnoses Anemia D64.9 Hiatal hernia K44.9 Fibromyalgia M79.7 HTN (hypertension) I10 Multiple thyroid nodules E04.2 COPD (chronic obstructive pulmonary disease) J44.9 History of gastroesophageal reflux (GERD) Z87.19 Meningioma D32.9 Opioid dependence F11.20 B12 deficiency E53.8
[2021-10-30 14:30] LABS: Hematocrit (blood only) 30.1 % (34.1-44.9); Hemoglobin 9.3 g/dl (12.0-16.0); Mean Corpuscular Hemoglobin 23.6 pg (25.0-34.0); Mean Corpuscular Hgb Conc 30.9 g/dL (32.0-36.0); Mean Corpuscular Volume 76.4 fL (80.0-100.0); Mean Platelet Volume 9.8 fL (9.4-12.3); Nucleated RBC # (auto) 0.02 K/uL (0-0); Nucleated RBC % (auto) 0.3 %; Platelet Count 429 K/uL (130-400); RDW Coefficient of Variation 19.5 % (11.5-14.5); RDW Standard Deviation 52.8 fL (36.4-46.3); Red Blood Count 3.94 M/uL (3.93-5.22); White Blood Count 6.28 K/ul (4.8-10.8)
--- NOTE | 2021-10-30 19:30 | Electrocardiogram Report ---
Test Reason : Blood Pressure : / mmHG Vent. Rate : 069 BPM Atrial Rate : 069 BPM P-R Int : 128 ms QRS Dur : 078 ms QT Int : 424 ms P-R-T Axes : 036 035 029 degrees QTc Int : 454 ms Normal sinus rhythm Cannot rule out Anterior infarct (cited on or before 14-JUL-2016) Abnormal ECG When compared with ECG of 14-JUL-2016 06:27, No significant change was found Confirmed by Pelon Villarreal ([id number]) on 10/30/2021 7:30:35 PM Referred By: REFERRED SELF Confirmed By:Pelon Villarreal
== END 2021-10-30 15:30 | disposition home or self-care (01) ==
LOC: ED 11:14 → INTOOBSV 13:29 → SUATTDRO 13:29 → 3N 13:29
DX: M79.7 Fibromyalgia; R53.82 Chronic fatigue, unspecified; E53.8 Deficiency of other specified B group vitamins; Z79.899 Other long term (current) drug therapy; E04.8 Other specified nontoxic goiter; R06.00 Dyspnea, unspecified; I10 Essential (primary) hypertension; Z88.8 Allergy status to other drugs, medicaments and biological substances; K44.9 Diaphragmatic hernia without obstruction or gangrene; R06.02 Shortness of breath; F11.20 Opioid dependence, uncomplicated; J44.9 Chronic obstructive pulmonary disease, unspecified; Z79.51 Long term (current) use of inhaled steroids; G89.4 Chronic pain syndrome; D64.9 Anemia, unspecified